=== PATIENT | female | born 1960 | race Hispanic/Latino ===

== ENCOUNTER → 2018-05-17 | Day surgery (SDC) | payer OTHER ==
[~2018-05-17] MED LIST: BUPIVACAINE 0.5%/EPI 30 ML SDV INJ ONE; DEXAMETHASONE SOD PHOS INJ 4 MG/ML VIAL ONE; FENTANYL CITRATE/PF 100MCG/2 ML INJ ONE; KETOROLAC TROMETHAMINE 30 MG/ML VIAL ONE; LIDOCAINE HCL 1% 30ML-PF VIAL ONE; LIDOCAINE HCL 2% LOCAL INJ 5 ML SDV VIAL INJ ONE; LISINOPRIL10 MG PO; MIDAZOLAM HCL 2 MG/2 ML VIAL ONE; MORPHINE SULFATE INJ 4 MG/ML INJ ONE; ONDANSETRON HCL INJ 2 MG/ML VIAL ONE; PRILOSEC OTC20 MG PO; PROPOFOL IV EMULSION 10 MG/ML 20 ML VIAL ONE; ROCURONIUM BROMIDE 10 MG/ML 5ML VIAL ONE; SEVOFLURANE INHAL SOLN 250 ML PEN BTL ONE
--- OUTSIDE RECORDS SUMMARY | 2018-05-17 08:21 | XMS REPORT | Summary of Care ---
Author Author [facility] Organization [facility] Address Unknown Phone Unavailable Encounter ILIANA Dean(SANDEEP) [phone] Date(s): 11/05/15 - 11/05/15 [facility] [address] [place] [address]- Discharge Disposition: Home Attending Physician: Toni Escobar MD Referring Physician: Toni Escobar MD Vital Signs No data available for this section Problem List Condition Effective Dates Status Health Status Informant GERD Active (gastroesophageal reflux disease)(Confirmed) H/O vaginal Active hysterectomy(Confirm ed) Incontinence(Confirm Active ed) Knee Resolved injury(Confirmed) Allergies, Adverse Reactions, Alerts Substance Reaction Severity Status NKDA Active Medications No data available for this section Results No data available for this section Immunizations Not Given Vaccine Date Status Refusal Reason influenza virus vaccine, inactivated 08/18/15 Not Given Patient Refuses influenza virus vaccine, inactivated 08/18/15 Not Given Patient Refuses Procedures Procedure Date Related Diagnosis Body Site BSO - Total abdominal hysterectomy and 08/03/15 bilateral salpingo-oophorectomy Arthroscopic knee operation Hernia repair Social History Social History Type Response Alcohol Current, Type Beer. Previous treatment: None. Alcohol use interferes with work or home: No. Drinks more than intended: No. Others hurt by drinking: No. Ready to change: No. Household alcohol concerns: No. Smoking Status Never smoker; Exposure to Tobacco Smoke None; Cigarette Smoking Last 365 Days No; Reg Smoking Cessation Counseling No Assessment and Plan No data available for this section
--- OUTSIDE RECORDS SUMMARY | 2018-05-17 08:21 | XMS REPORT | Summary of Care ---
Author Author [facility] Organization [facility] Address Unknown Phone Unavailable Encounter HQ Jermaine(SANDEEP) [id number] Date(s): 08/31/15 - 09/03/15 [facility] [address] [place] [address]- Discharge Disposition: Home Attending Physician: Nadira Ramirez MD Admitting Physician: Nadira Ramirez MD Vital Signs 1 2 3 Most recent to oldest [Reference Range]: 160.02 cm (08/31/15 11:30 AM) 162.56 cm (08/31/15 3:29 AM) Height 97.8 DegF (09/03/15 7:36 PM) 98.1 DegF (09/03/15 3:51 PM) 98.1 DegF (09/03/15 12:03 PM) Temperature Oral [96.4-99.1 DegF] 122/82 mmHg (09/03/15 7:36 PM) 108/70 mmHg (09/03/15 3:51 PM) 118/82 mmHg (09/03/15 12:03 PM) Blood Pressure [90-140/60-90 mmHg] 20 BRMIN (09/03/15 7:36 PM) 18 BRMIN (09/03/15 6:51 PM) 18 BRMIN (09/03/15 3:51 PM) Respiratory Rate [14-20 BRMIN] 88 bpm (09/03/15 7:36 PM) 90 bpm (09/03/15 3:51 PM) 81 bpm (09/03/15 12:03 PM) Peripheral Pulse Rate [60-100 bpm] 84.091 kg (08/31/15 11:30 AM) 84.091 kg (08/31/15 3:29 AM) Weight 32.84 m2 (08/31/15 11:30 AM) 31.82 m2 (08/31/15 3:29 AM) Body Mass Index Problem List Condition Effective Dates Status Health Status Informant GERD Active (gastroesophageal reflux disease)(Confirmed) H/O vaginal Active hysterectomy(Confirm ed) Incontinence(Confirm Active ed) Knee Resolved injury(Confirmed) Allergies, Adverse Reactions, Alerts Substance Reaction Severity Status NKDA Active Medications acetaminophen 650 mg, 2 tab, Route: PO, Drug form: TAB, Q4H, Dosing Weight 84.091, kg, PRN Cora n 1-3/Temp > 100.4 F, Start date: 08/31/15 19:07:00 CDT, Duration: 30 day, Stop date: 09/30/15 19:06:00 CDT Notes: Do not exceed 4 gm/day. (Same as: Tylenol) Start Date: 08/31/15 Stop Date: 09/03/15 Status: Discontinued acetaminophen (ANES) Route: IV, Drug form: INJ, ONCE, Stop date: 08/31/15 17:23:00 CDT Start Date: 08/31/15 Stop Date: 08/31/15 Status: Completed ampicillin + Sodium Chloride 0.9% IV 100 mL 2 gm, Route: IVPB, ABXQ6H, Dosing Weight 84.091, kg, Priority: STAT, Start date: 08/31/15 6:19:00 CDT, Duration: 30 day, Stop date: 09/30/15 0:19:00 CDT Notes: (Same as: Ran) MEDICATION WASTE Product Size: [address] Wasted: ___ mg Start Date: 08/31/15 Stop Date: 08/31/15 Status: Discontinued ceFAZolin (ANES) Route: IV, Drug form: INJ, ONCE, Stop date: 08/31/15 17:23:00 CDT Start Date: 08/31/15 Stop Date: 08/31/15 Status: Completed clindamycin 900 mg, 50 mL, Route: IVPB, Drug form: INJ, ABXQ8H, Dosing Weight 84.091, kg, Pr iority: STAT, Start date: 08/31/15 6:20:00 CDT, Duration: 30 day, Stop date: 04/05 22:20:00 CDT Start Date: 08/31/15 Stop Date: 08/31/15 Status: Discontinued D5NS 1,000 mL 1,000 mL, Rate: 125 ml/hr, Infuse over: 8 hr, Route: IV, Dosing Weight 84.091 kg , Total Volume: 1,000, Start date: 09/01/15 12:07:00 CDT, Duration: 30 day, Stop date: 10/01/15 12:06:00 CDT Start Date: 09/01/15 Stop Date: 09/02/15 Status: Discontinued dexamethasone 4 mg, Route: IVP, ONCE, Dosing Weight 84.091, kg, PRN Nausea & Vomiting, Start date: 08/31/15 19:06:00 CDT Start Date: 08/31/15 Stop Date: 08/31/15 Status: Discontinued dexamethasone (ANES) Route: IV, Drug form: INJ, ONCE, Stop date: 08/31/15 17:23:00 CDT Start Date: 08/31/15 Stop Date: 08/31/15 Status: Completed Dilaudid 1 mg, Route: IV, Q4H, Dosing Weight 84.091, kg, PRN Pain Score 7-10, Start date: 08/31/15 19:07:00 CDT, Duration: 30 day, Stop date: 09/30/15 19:06:00 CDT Start Date: 08/31/15 Stop Date: 08/31/15 Status: Deleted diphenhydrAMINE 12.5 mg, Route: IVP, Drug form: INJ, Q6H, Dosing Weight 84.091, kg, PRN Itching, Start date: 08/31/15 19:06:00 CDT, Duration: 30 day, Stop date: 09/30/15 19:05: 00 CDT Start Date: 08/31/15 Stop Date: 08/31/15 Status: Discontinued docusate 100 mg, 1 cap, Route: PO, Drug form: CAP, BID, Dosing Weight 84.091, kg, PRN Con stipation, Start date: 08/31/15 19:07:00 CDT, Duration: 30 day, Stop date: 09/29 19:06:00 CDT Notes: (Same as: Colace) (Do Not Crush) Start Date: 08/31/15 Stop Date: 09/03/15 Status: Discontinued fentaNYL 25 microgram, Route: IVP, Q5Min, Dosing Weight 84.091, kg, PRN Pain Score 4-6, S tart date: 08/31/15 19:06:00 CDT, Duration: 4 doses or times, Stop date: Limited # of times Start Date: 08/31/15 Stop Date: 08/31/15 Status: Discontinued fentaNYL 50 microgram, Route: IVP, Q5Min, Dosing Weight 84.091, kg, PRN Pain Score 7-10, Start date: 08/31/15 19:06:00 CDT, Duration: 2 doses or times, Stop date: Limite d # of times Start Date: 08/31/15 Stop Date: 08/31/15 Status: Discontinued fentaNYL (ANES) Route: IV, Drug form: INJ, ONCE, Stop date: 08/31/15 17:23:00 CDT Start Date: 08/31/15 Stop Date: 08/31/15 Status: Completed Flagyl 500 mg, 100 mL, Route: IVPB, Drug form: INJ, ABXQ8H, Dosing Weight 84.091, kg, S tart date: 08/31/15 19:00:00 CDT, Duration: 30 day, Stop date: 09/30/15 11:00:00 CDT Notes: (Same as: Flagyl) Avoid alcohol. Start Date: 08/31/15 Stop Date: 09/03/15 Status: Discontinued Flagyl 500 mg, Route: IVPB, ABXQ8H, Dosing Weight 84.091, kg, Start date: 08/31/15 20:0 0:00 CDT, Duration: 30 day, Stop date: 09/30/15 12:00:00 CDT Start Date: 08/31/15 Stop Date: 08/31/15 Status: Deleted flumazenil 0.2 mg, Route: IVP, PRN, Dosing Weight 84.091, kg, PRN Benzodiazepine Reversal, Initial dose, Start date: 08/31/15 19:06:00 CDT, Duration: 30 day, Stop date: 19:05:00 CDT Start Date: 08/31/15 Stop Date: 08/31/15 Status: Discontinued gentamicin 80 mg, 100 mL, Route: IVPB, Drug form: INJ, ABXQ8H, Dosing Weight 84.091, kg, Pr iority: STAT, Start date: 08/31/15 6:19:00 CDT, Duration: 30 day, Stop date: 04/05 22:19:00 CDT Notes: TIME CRITICAL MEDICATION(Same as Garamycin) Start Date: 08/31/15 Stop Date: 08/31/15 Status: Discontinued glycopyrrolate 0.2 mg, Route: IVP, Q5Min, Dosing Weight 84.091, kg, PRN Bradycardia, Start date : 08/31/15 19:06:00 CDT, Duration: 3 doses or times, Stop date: Limited # of priyanka es Start Date: 08/31/15 Stop Date: 08/31/15 Status: Discontinued glycopyrrolate (ANES) Route: IV, Drug form: INJ, ONCE, Stop date: 08/31/15 18:46:00 CDT Start Date: 08/31/15 Stop Date: 08/31/15 Status: Completed hydrALAZINE 10 mg, Route: IVP, Q20Min, Dosing Weight 84.091, kg, PRN Elevated BP, Start date : 08/31/15 19:06:00 CDT, Duration: 2 doses or times, Stop date: Limited # of priyanka es Start Date: 08/31/15 Stop Date: 08/31/15 Status: Discontinued hydromorphone 1 mg, 1 mL, Route: IV, Drug form: INJ, Q4H, Dosing Weight 84.091, kg, PRN Pain S core 7-10, Start date: 08/31/15 8:41:00 CDT, Duration: 30 day, Stop date: 8:40:00 CDT Start Date: 08/31/15 Stop Date: 09/02/15 Status: Discontinued hydromorphone 1 mg, 1 mL, Route: IVP, Drug form: INJ, Q4H, Dosing Weight 84.091, kg, PRN Pain Score 7-10, Start date: 08/31/15 19:07:00 CDT, Duration: 30 day, Stop date: 09/18 07/06 19:06:00 CDT Start Date: 08/31/15 Stop Date: 08/31/15 Status: Deleted hydromorphone 0.5 mg, Route: IVP, Q5Min, Dosing Weight 84.091, kg, PRN Pain Score 7-10, Start date: 08/31/15 19:06:00 CDT, Duration: 4 doses or times, Stop date: Limited # of times Start Date: 08/31/15 Stop Date: 08/31/15 Status: Discontinued hydromorphone (ANES) Route: IV, Drug form: INJ, ONCE, Stop date: 08/31/15 18:38:00 CDT Start Date: 08/31/15 Stop Date: 08/31/15 Status: Completed ibuprofen 600 mg oral tablet 600 mg=1 tab, PO, Q6H, PRN Pain Score 1-3, 0 Refill(s) Start Date: 09/03/15 Status: Ordered ketOROLAC 30 mg, Route: IV, Drug form: INJ, Q6H, Dosing Weight 84.091, kg, PRN Pain Score 6-10, Start date: 08/31/15 19:07:00 CDT, Duration: 4 day, Stop date: 09/04/15 19 :06:00 CDT Start Date: 08/31/15 Stop Date: 08/31/15 Status: Deleted ketOROLAC 30 mg, 1 mL, Route: IVP, Drug form: INJ, Q6H, Dosing Weight 84.091, kg, PRN Pain Score 6-10, Start date: 08/31/15 19:07:00 CDT, Duration: 4 day, Stop date: 08/19 11/03 19:06:00 CDT Notes: (Same as:Toradol) IV bolus must be given >15 seconds. Give IM administration slowly and deeply into the muscle.Not for use > 4 days MEDICATION WASTE Product Size: 30 mgProduct Wasted: ___ mg Start Date: 08/31/15 Stop Date: 09/02/15 Status: Discontinued ketOROLAC 30 mg, Route: IVP, ONCE, Dosing Weight 84.091, kg, Start date: 08/31/15 19:06:00 CDT, Duration: 1 doses or times, Stop date: 08/31/15 19:06:00 CDT Start Date: 08/31/15 Stop Date: 08/31/15 Status: Discontinued ketOROLAC 30 mg, 1 mL, Route: IVP, Drug form: INJ, Q6H, Dosing Weight 84.091, kg, PRN Pain Score 6-10, Start date: 09/02/15 19:12:00 CDT, Duration: 4 day, Stop date: 08/19 01/03 19:11:00 CDT Notes: (Same as:Toradol) IV bolus must be given >15 seconds. Give IM administration slowly and deeply into the muscle.Not for use > 4 days MEDICATION WASTE Product Size: 30 mgProduct Wasted: ___ mg Start Date: 09/02/15 Stop Date: 09/03/15 Status: Discontinued Lactated Ringers Injection IV (ANES) (ANES) Route: IV, Total Volume: 1,000, Start date: 08/31/15 16:16:00 CDT, Stop date: 17:16:00 CDT Start Date: 08/31/15 Stop Date: 08/31/15 Status: Completed Lactated Ringers IV 1,000 mL 1,000 mL, Rate: 75 ml/hr, Infuse over: 13.3 hr, Route: IV, Dosing Weight 84.091 kg, Total Volume: 1,000, Start date: 08/31/15 19:07:00 CDT, Duration: 30 day, St op date: 09/30/15 19:06:00 CDT Start Date: 08/31/15 Stop Date: 09/01/15 Status: Voided With Results lidocaine (ANES) Route: IV, Drug form: INJ, ONCE, Stop date: 08/31/15 17:23:00 CDT Start Date: 08/31/15 Stop Date: 08/31/15 Status: Completed LR IV 1,000 mL 1,000 mL, Rate: 40 ml/hr, Infuse over: 25 hr, Route: IV, Dosing Weight 84.091 kg , Total Volume: 1,000, Start date: 08/31/15 16:02:00 CDT, Duration: 30 day, Stop date: 09/30/15 16:01:00 CDT Start Date: 08/31/15 Stop Date: 08/31/15 Status: Discontinued meperidine 12.5 mg, Route: IVP, Q30Min, Dosing Weight 84.091, kg, PRN Other -See Comment, F or shivering, Start date: 08/31/15 19:06:00 CDT, Duration: 2 doses or times, Sto p date: Limited # of times Start Date: 08/31/15 Stop Date: 08/31/15 Status: Discontinued metoprolol 1 mg, Route: IVP, Q5Min, Dosing Weight 84.091, kg, PRN Other -See Comment, Start date: 08/31/15 19:06:00 CDT, Duration: 5 doses or times, Stop date: Limited # of times Start Date: 08/31/15 Stop Date: 08/31/15 Status: Discontinued midazolam (ANES) Route: IV, Drug form: SOLN, ONCE, Stop date: 08/31/15 17:18:00 CDT Start Date: 08/31/15 Stop Date: 08/31/15 Status: Completed morphine Sulfate 2 mg, 1 mL, Route: IVP, Drug form: INJ, Q4H, Dosing Weight 84.091, kg, PRN Pain Score 7-10, Start date: 08/31/15 7:11:00 CDT, Duration: 30 day, Stop date: 09/29 7:10:00 CDT Notes: (Same as:MORPhine Sulfate) Start Date: 08/31/15 Stop Date: 08/31/15 Status: Voided With Results morphine Sulfate 4 mg, 2 mL, Route: IVP, Drug form: INJ, Q3H, Dosing Weight 84.091, kg, PRN Pain Score 4-6, Start date: 08/31/15 19:07:00 CDT, Stop date: 09/30/15 19:06:00 CDT Notes: (Same as:MORPhine Sulfate) Start Date: 08/31/15 Stop Date: 09/02/15 Status: Discontinued morphine Sulfate 2 mg, 1 mL, Route: IVP, Drug form: INJ, Q3H, Dosing Weight 84.091, kg, PRN Pain Score 1-3, Start date: 08/31/15 19:07:00 CDT, Duration: 30 day, Stop date: 09/29 19:06:00 CDT Notes: (Same as:MORPhine Sulfate) Start Date: 08/31/15 Stop Date: 09/02/15 Status: Discontinued morphine Sulfate 2 mg, Route: IVP, Drug form: INJ, ONCE, Dosing Weight 84.091, kg, Priority: STAT , Start date: 08/31/15 6:29:00 CDT, Stop date: 08/31/15 6:29:00 CDT Start Date: 08/31/15 Stop Date: 08/31/15 Status: Completed morphine Sulfate 2 mg, Route: IVP, Q5Min, Dosing Weight 84.091, kg, PRN Pain Score 4-6, Start haleigh e: 08/31/15 19:06:00 CDT, Duration: 5 doses or times, Stop date: Limited # of ti mes Start Date: 08/31/15 Stop Date: 08/31/15 Status: Discontinued morphine Sulfate 4 mg, Route: IVP, Q5Min, Dosing Weight 84.091, kg, PRN Pain Score 7-10, Start da te: 08/31/15 19:06:00 CDT, Duration: 3 doses or times, Stop date: Limited # of t imes Start Date: 08/31/15 Stop Date: 08/31/15 Status: Discontinued morphine Sulfate 2 mg, Route: IVP, Drug form: INJ, ONCE, Dosing Weight 84.091, kg, Priority: STAT , Start date: 08/31/15 3:50:00 CDT, Stop date: 08/31/15 3:50:00 CDT Start Date: 08/31/15 Stop Date: 08/31/15 Status: Completed Motrin 600 mg, 1 tab, Route: PO, Drug form: TAB, Q6H, Dosing Weight 84.091, kg, PRN Cora n Score 1-3, Start date: 09/02/15 19:13:00 CDT, Duration: 30 day, Stop date: 19:12:00 CDT Notes: (Same as: Motrin)"Do Not Crush" Take with food. Start Date: 09/02/15 Stop Date: 09/03/15 Status: Discontinued naloxone 0.04 mg, Route: IVP, Q2MIN, Dosing Weight 84.091, kg, PRN Narcotic Reversal, Sta rt date: 08/31/15 19:06:00 CDT, Duration: 8 doses or times, Stop date: Limited # of times Start Date: 08/31/15 Stop Date: 08/31/15 Status: Discontinued neostigmine (ANES) Route: IV, Drug form: INJ, ONCE, Stop date: 08/31/15 18:46:00 CDT Start Date: 08/31/15 Stop Date: 08/31/15 Status: Completed [place] 5/325 oral tablet 2 tab, PO, Q6H, PRN Pain Score 4-6, 0 Refill(s) Start Date: 09/03/15 Status: Ordered [place] 5/325 oral tablet 1 tab, PO, Q6H, PRN Pain Score 1-3, 0 Refill(s) Start Date: 09/03/15 Status: Ordered [place] 5/325 oral tablet 2 tab, Route: PO, Drug Form: TAB, Dosing Weight 84.091, kg, Q6H, PRN Pain Score 4-6, Start date: 09/02/15 19:14:00 CDT, Duration: 30 day, Stop date: 10/02/15 19 :13:00 CDT Notes: (Same as: [place] 325/5) Do not exceed 4gm/day of acetaminophen. Start Date: 09/02/15 Stop Date: 09/03/15 Status: Discontinued [place] 5/325 oral tablet 1 tab, Route: PO, Drug Form: TAB, Dosing Weight 84.091, kg, Q6H, PRN Pain Score 1-3, Start date: 09/02/15 19:14:00 CDT, Duration: 30 day, Stop date: 10/02/15 19 :13:00 CDT Notes: (Same as: [place] 325/5) Do not exceed 4gm/day of acetaminophen. Start Date: 09/02/15 Stop Date: 09/03/15 Status: Discontinued NS (Bolus) IV 1,000 mL, 1,000 ml/hr, Infuse Over: 1 hr, Route: IV, ONCE, Priority: STAT, Dosin g Weight 84.091 kg, Start date: 08/31/15 3:49:00 CDT, Duration: 1 doses or times , Stop date: 08/31/15 3:49:00 CDT Start Date: 08/31/15 Stop Date: 08/31/15 Status: Completed NS 1,000 mL 1,000 mL, Rate: 150 ml/hr, Infuse over: 6.7 hr, Route: IV, Dosing Weight 84.091 kg, Total Volume: 1,000, Start date: 08/31/15 7:11:00 CDT, Duration: 30 day, Sto p date: 09/30/15 7:10:00 CDT Start Date: 08/31/15 Stop Date: 08/31/15 Status: Discontinued ondansetron 4 mg, 2 mL, Route: IVP, Drug form: INJ, Q6H, Dosing Weight 84.091, kg, PRN Nause a & Vomiting, Start date: 08/31/15 19:07:00 CDT, Duration: 30 day, Stop date: 09/30/15 19:06:00 CDT Notes: (Same as: Leena) MEDICATION WASTE Product Size: 4 mgProduct Was bethel: ___ mg Start Date: 08/31/15 Stop Date: 09/03/15 Status: Discontinued ondansetron 4 mg, Route: IVP, ONCE, Dosing Weight 84.091, kg, PRN Nausea & Vomiting, Start date: 08/31/15 19:06:00 CDT Start Date: 08/31/15 Stop Date: 08/31/15 Status: Discontinued ondansetron (ANES) Route: IV, Drug form: INJ, ONCE, Stop date: 08/31/15 17:23:00 CDT Start Date: 08/31/15 Stop Date: 08/31/15 Status: Completed oxyCODONE 5 mg, Route: PO, Drug form: TAB, Q4H, Dosing Weight 84.091, kg, PRN Pain Score 4 -6, Start date: 08/31/15 19:06:00 CDT, Duration: 30 day, Stop date: 09/30/15 19: 05:00 CDT Start Date: 08/31/15 Stop Date: 08/31/15 Status: Discontinued oxyCODONE 10 mg, Route: PO, Drug form: TAB, Q4H, Dosing Weight 84.091, kg, PRN Pain Score 7-10, Start date: 08/31/15 19:06:00 CDT, Duration: 30 day, Stop date: 09/30/15 1 9:05:00 CDT Start Date: 08/31/15 Stop Date: 08/31/15 Status: Discontinued pantoprazole 40 mg, 1 tab, Route: PO, Drug form: ECTAB, Before Dinner, Dosing Weight 84.091, kg, Start date: 09/03/15 16:30:00 CDT, Duration: 30 day, Stop date: 10/02/15 16: 30:00 CDT Notes: Tablet should not be chewed or crushed.(Same as: Protonix) Start Date: 09/03/15 Stop Date: 09/03/15 Status: Discontinued phenylephrine (ANES) Route: IV, Drug form: INJ, ONCE, Stop date: 08/31/15 17:48:00 CDT Start Date: 08/31/15 Stop Date: 08/31/15 Status: Completed Prilosec 20 mg, Route: PO, Drug form: DRC, Daily, Dosing Weight 84.091, kg, Start date: 0 09/04/15 9:00:00 CDT, Duration: 30 day, Stop date: 10/03/15 9:00:00 CDT Start Date: 09/04/15 Stop Date: 09/03/15 Status: Deleted Prilosec 20 mg oral delayed release capsule 20 mg, PO, Daily, 0 Refill(s) Start Date: 09/03/15 Status: Ordered promethazine 6.25 mg, Route: IVPB, ONCE, Dosing Weight 84.091, kg, PRN Nausea & Vomiting, Start date: 08/31/15 19:06:00 CDT Start Date: 08/31/15 Stop Date: 08/31/15 Status: Discontinued propofol (ANES) Route: IV, Drug form: INJ, ONCE, Stop date: 08/31/15 17:23:00 CDT Start Date: 08/31/15 Stop Date: 08/31/15 Status: Completed rocuronium (ANES) Route: IV, Drug form: INJ, ONCE, Stop date: 08/31/15 17:23:00 CDT Start Date: 08/31/15 Stop Date: 08/31/15 Status: Completed simethicone 160 mg, 2 tab, Route: PO, Drug form: CHEWTAB, Q2H, Dosing Weight 84.091, kg, PRN Gas, Start date: 08/31/15 19:07:00 CDT, Duration: 30 day, Stop date: 09/30/15 1 9:06:00 CDT Notes: (Same as: Inez) Start Date: 08/31/15 Stop Date: 09/03/15 Status: Discontinued Zofran 4 mg, Route: IVP, Drug form: INJ, ONCE, Dosing Weight 84.091, kg, Priority: STAT , Start date: 08/31/15 3:50:00 CDT, Stop date: 08/31/15 3:50:00 CDT Start Date: 08/31/15 Stop Date: 08/31/15 Status: Completed Zosyn 3.375 gm, Route: IVPB, Drug form: PDR/INJ, ABXQ6H, Dosing Weight 84.091, kg, Sta rt date: 08/31/15 20:00:00 CDT, Duration: 30 day, Stop date: 09/30/15 14:00:00 C DT Start Date: 08/31/15 Stop Date: 08/31/15 Status: Deleted Zosyn 3.375 gm, Route: IVPB, Drug form: PDR/INJ, ONCE, Dosing Weight 84.091, kg, Prior ity: STAT, Start date: 08/31/15 6:01:00 CDT, Stop date: 08/31/15 6:01:00 CDT Start Date: 08/31/15 Stop Date: 08/31/15 Status: Discontinued Zosyn + Sodium Chloride 0.9% IV 100 mL 3.375 gm, Route: IVPB, ABXQ8H, Dosing Weight 84.091, kg, Start date: 08/31/15 19 :00:00 CDT, Duration: 30 day, Stop date: 09/30/15 11:00:00 CDT Notes: (Same as: Zosyn)Dosing based on Piperacillin component MEDICATION WA KIAH Product Size: 3375 mgProduct Wasted: ___ mg Start Date: 08/31/15 Stop Date: 08/31/15 Status: Discontinued Zosyn + Sodium Chloride 0.9% IV 100 mL 3.375 gm, Route: IVPB, ABXQ8H, Dosing Weight 84.091, kg, Start date: 08/31/15 20 :00:00 CDT, Duration: 30 day, Stop date: 09/30/15 12:00:00 CDT Notes: (Same as: Zosyn)Dosing based on Piperacillin component MEDICATION [place] KIAH Product Size: 3375 mgProduct Wasted: ___ mg Start Date: 08/31/15 Stop Date: 09/03/15 Status: Discontinued Results ELECTROLYTES 1 2 3 Most recent to oldest [Reference Range]: 139 mEq/L (09/03/15 4:01 AM) 136 mEq/L (09/01/15 6:05 AM) 134 mEq/L *LOW* (08/31/15 4:23 AM) Sodium Lvl [135-145 mEq/L] 3.7 mEq/L (09/03/15 4:01 AM) 4.4 mEq/L (09/01/15 6:05 AM) 4.1 mEq/L (08/31/15 4:23 AM) Potassium Lvl [3.5-5.1 mEq/L] 110 mEq/L *HI* (09/03/15 4:01 AM) 103 mEq/L (09/01/15 6:05 AM) 101 mEq/L (08/31/15 4:23 AM) Chloride Lvl [95-109 mEq/L] 22 mEq/L *LOW* (09/03/15 4:01 AM) 23 mEq/L *LOW* (09/01/15 6:05 AM) 27 mEq/L (08/31/15 4:23 AM) CO2 [24-32 mEq/L] 10.7 mEq/L (09/03/15 4:01 AM) 14.4 mEq/L (09/01/15 6:05 AM) 10.1 mEq/L (08/31/15 4:23 AM) AGAP [10.0-20.0 mEq/L] CHEM PANEL 1 2 3 Most recent to oldest [Reference Range]: 0.44 mg/dL *LOW* (09/03/15 4:01 AM) 0.67 mg/dL (09/01/15 6:05 AM) 0.71 mg/dL (08/31/15 10:43 PM) Creatinine Lvl [0.50-1.40 mg/dL] 113 mL/min/1.73m2 1 *NA* (09/03/15 4:01 AM) 99 mL/min/1.73m2 2 *NA* (09/01/15 6:05 AM) 96 mL/min/1.73m2 3 *NA* (08/31/15 10:43 PM) eGFR 5 mg/dL *LOW* (09/03/15 4:01 AM) 10 mg/dL (09/01/15 6:05 AM) 10 mg/dL (08/31/15 4:23 AM) BUN [7-22 mg/dL] 11 (09/03/15 4:01 AM) 15 (08/31/15 4:23 AM) B/C Ratio [6-25] 111 mg/dL *HI* (09/03/15 4:01 AM) 147 mg/dL *HI* (09/01/15 6:05 AM) 132 mg/dL *HI* (08/31/15 4:23 AM) Glucose Lvl [70-99 mg/dL] 5.4 g/dL *LOW* (09/03/15 4:01 AM) 7.5 g/dL (08/31/15 4:23 AM) Total Protein [6.4-8.4 g/dL] 2.5 g/dL *LOW* (09/03/15 4:01 AM) 3.7 g/dL (08/31/15 4:23 AM) Albumin Lvl [3.5-5.0 g/dL] 2.9 g/dL (09/03/15 4:01 AM) 3.8 g/dL (08/31/15 4:23 AM) Globulin [2.0-4.0 g/dL] 0.9 (09/03/15 4:01 AM) 1.0 (08/31/15 4:23 AM) A/G Ratio [0.7-1.6] 7.3 mg/dL *LOW* (09/03/15 4:01 AM) 7.7 mg/dL *LOW* (09/01/15 6:05 AM) 8.7 mg/dL (08/31/15 4:23 AM) Calcium Lvl [8.5-10.5 mg/dL] 23 unit/L (09/03/15 4:01 AM) 19 unit/L (08/31/15 4:23 AM) ALT [0-65 unit/L] 20 unit/L (09/03/15 4:01 AM) 14 unit/L (08/31/15 4:23 AM) AST [0-37 unit/L] 80 unit/L (09/03/15 4:01 AM) 87 unit/L (08/31/15 4:23 AM) Alk Phos [39-136 unit/L] 0.6 mg/dL (09/03/15 4:01 AM) 1.0 mg/dL (08/31/15 4:23 AM) Bili Total [0.2-1.3 mg/dL] 83 unit/L (08/31/15 4:23 AM) Lipase Lvl [73-393 unit/L] 2.0 mMol/L (08/31/15 6:30 AM) Lactic Acid Lvl [0.5-2.2 mMol/L] 1Result Comment: The eGFR is calculated using the CKD-EPI formula. In most young, healthy individuals the eGFR will be >90 mL/min/1.73m2. The eGFR declines with age. An eGFR of 60-89 may be normal in some populations, particularly the elderly, for whom the CKD-EPI formula has not been extensively validated. Use of the eGFR is not recommended in the following populations: Individuals with unstable creatinine concentrations, including patients and those with serious co-morbid conditions. Patients with extremes in muscle mass or diet. The data above are obtained from the [employer] ( [employer]) which additionally recommends that when the eGFR is used in patients with extremes of body mass index for purposes of drug dosing, the eGFR should be mul tiplied by the estimated BMI. 2Result Comment: The eGFR is calculated using the CKD-EPI formula. In most young, healthy individuals the eGFR will be >90 mL/min/1.73m2. The eGFR declines with age. An eGFR of 60-89 may be normal in some populations, particularly the elderly, for whom the CKD-EPI formula has not been extensively validated. Use of the eGFR is not recommended in the following populations: Individuals with unstable creatinine concentrations, including patients and those with serious co-morbid conditions. Patients with extremes in muscle mass or diet. The data above are obtained from the [employer] ( [employer]) which additionally recommends that when the eGFR is used in patients with extremes of body mass index for purposes of drug dosing, the eGFR should be mul tiplied by the estimated BMI. 3Result Comment: The eGFR is calculated using the CKD-EPI formula. In most young, healthy individuals the eGFR will be >90 mL/min/1.73m2. The eGFR declines with age. An eGFR of 60-89 may be normal in some populations, particularly the elderly, for whom the CKD-EPI formula has not been extensively validated. Use of the eGFR is not recommended in the following populations: Individuals with unstable creatinine concentrations, including patients and those with serious co-morbid conditions. Patients with extremes in muscle mass or diet. The data above are obtained from the [employer] Education Program ( [employer]) which additionally recommends that when the eGFR is used in patients with extremes of body mass index for purposes of drug dosing, the eGFR should be mul tiplied by the estimated BMI. URINE AND STOOL 1 2 3 Most recent to oldest [Reference Range]: Slight *ABN* (08/31/15 5:06 AM) UA Turbidity [Clear] Yellow *NA* (08/31/15 5:06 AM) UA Color [Yellow] 7.0 (08/31/15 5:06 AM) UA pH [5.0-8.0] 1.018 (08/31/15 5:06 AM) UA Spec Grav [<=1.030] Negative mg/dL *NA* (08/31/15 5:06 AM) UA Glucose [Negative mg/dL] Large *ABN* (08/31/15 5:06 AM) UA Blood [Negative] Negative mg/dL *NA* (08/31/15 5:06 AM) UA Ketones [Negative mg/dL] Negative mg/dL (08/31/15 5:06 AM) UA Protein [Negative mg/dL] <=1.0 mg/dL *NA* (08/31/15 5:06 AM) UA Urobilinogen [0.1-1.0 mg/dL] Negative *NA* (08/31/15 5:06 AM) UA Bili [Negative] Trace *ABN* (08/31/15 5:06 AM) UA Leuk Est [Negative] Negative (08/31/15 5:06 AM) UA Nitrite [Negative] 11 /HPF *HI* (08/31/15 5:06 AM) UA WBC [0-5 /HPF] 7 /HPF *HI* (08/31/15 5:06 AM) UA RBC [0-2 /HPF] Occasional /HPF *NA* (08/31/15 5:06 AM) UA Bacteria [None Seen /HPF] Occasional /LPF *NA* (08/31/15 5:06 AM) UA Sq Epi [Few /LPF] Occasional /HPF *NA* (08/31/15 5:06 AM) UA Amorph [place] [None Seen /HPF] IMMUNOLOGY 1 2 3 Most recent to oldest [Reference Range]: Negative *NA* (08/31/15 10:09 AM) Seibert-Hep C Ab [Negative] HEMATOLOGY 1 2 3 Most recent to oldest [Reference Range]: 5.6 K/CMM (09/03/15 4:01 AM) 13.3 K/CMM *HI* (09/01/15 6:05 AM) 11.9 K/CMM *HI* (08/31/15 4:23 AM) WBC [3.7-10.4 K/CMM] 2.70 M/CMM *LOW* (09/03/15 4:01 AM) 3.30 M/CMM *LOW* (09/01/15 6:05 AM) 3.47 M/CMM *LOW* (08/31/15 4:23 AM) RBC [4.20-5.40 M/CMM] 7.5 g/dL *LOW* (09/03/15 4:01 AM) 9.2 g/dL *LOW* (09/01/15 6:05 AM) 9.7 g/dL *LOW* (08/31/15 4:23 AM) Hgb [12.0-16.0 g/dL] 22.8 % *LOW* (09/03/15 4:01 AM) 28.0 % *LOW* (09/01/15 6:05 AM) 29.6 % *LOW* (08/31/15 4:23 AM) Hct [36.0-48.0 %] 84.3 fL (09/03/15 4:01 AM) 84.7 fL (09/01/15 6:05 AM) 85.2 fL (08/31/15 4:23 AM) MCV [80.0-98.0 fL] 27.8 pg (09/03/15 4:01 AM) 28.0 pg (09/01/15 6:05 AM) 27.9 pg (08/31/15 4:23 AM) MCH [27.0-31.0 pg] 33.0 g/dL (09/03/15 4:01 AM) 33.0 g/dL (09/01/15 6:05 AM) 32.7 g/dL (08/31/15 4:23 AM) MCHC [32.0-36.0 g/dL] 14.5 % (09/03/15 4:01 AM) 14.1 % (09/01/15 6:05 AM) 14.2 % (08/31/15 4:23 AM) RDW [11.5-14.5 %] 396 K/CMM (09/03/15 4:01 AM) 410 K/CMM (09/01/15 6:05 AM) 431 K/CMM (08/31/15 10:43 PM) Platelet [133-450 K/CMM] 6.7 fL *LOW* (09/03/15 4:01 AM) 6.6 fL *LOW* (09/01/15 6:05 AM) 6.3 fL *LOW* (08/31/15 4:23 AM) MPV [7.4-10.4 fL] 74.4 % (09/03/15 4:01 AM) 88.6 % *HI* (09/01/15 6:05 AM) 86.6 % *HI* (08/31/15 4:23 AM) Segs [45.0-75.0 %] 15.5 % *LOW* (09/03/15 4:01 AM) 5.1 % *LOW* (09/01/15 6:05 AM) 7.3 % *LOW* (08/31/15 4:23 AM) Lymphocytes [20.0-40.0 %] 6.2 % (09/03/15 4:01 AM) 6.0 % (09/01/15 6:05 AM) 5.1 % (08/31/15 4:23 AM) Monocytes [2.0-12.0 %] 3.4 % (09/03/15 4:01 AM) 0.6 % (08/31/15 4:23 AM) Eosinophils [0.0-4.0 %] 0.5 % (09/03/15 4:01 AM) 0.3 % (09/01/15 6:05 AM) 0.4 % (08/31/15 4:23 AM) Basophils [0.0-1.0 %] 4.2 K/CMM (09/03/15 4:01 AM) 11.8 K/CMM *HI* (09/01/15 6:05 AM) 10.3 K/CMM *HI* (08/31/15 4:23 AM) Segs-Bands # [1.5-8.1 K/CMM] 0.9 K/CMM *LOW* (09/03/15 4:01 AM) 0.7 K/CMM *LOW* (09/01/15 6:05 AM) 0.9 K/CMM *LOW* (08/31/15 4:23 AM) Lymphocytes # [1.0-5.5 K/CMM] 0.3 K/CMM (09/03/15 4:01 AM) 0.8 K/CMM (09/01/15 6:05 AM) 0.6 K/CMM (08/31/15 4:23 AM) Monocytes # [0.0-0.8 K/CMM] 0.2 K/CMM (09/03/15 4:01 AM) 0.1 K/CMM (08/31/15 4:23 AM) Eosinophils # [0.0-0.5 K/CMM] 35.9 seconds *HI* (08/31/15 10:43 PM) PTT [22.9-35.8 seconds] Immunizations Vaccine Date Refusal Reason influenza virus vaccine, inactivated 08/18/15 Patient Refuses influenza virus vaccine, inactivated 08/18/15 Patient Refuses Procedures Procedure Date Related Diagnosis [...] Smoking Cessation Counseling No Assessment and Plan Extracted from: Title: Clinical Document Author: Toni Zarate MD Date: 09/03/15 Still with increased drain output. Will monitor. Once decreased, will remove prior to dc or in office.
--- OUTSIDE RECORDS SUMMARY | 2018-05-17 08:21 | XMS REPORT | Summary of Care ---
Author Author [facility] Organization [facility] Address Unknown Phone Unavailable Encounter ILIANA Dean(SANDEEP) [id number] Date(s): 08/17/15 - 08/18/15 [facility] [address] [place] [address]- Discharge Disposition: Home Attending Physician: Toni Escobar MD Referring Physician: Toni Escobar MD Vital Signs 1 2 3 Most recent to oldest [Reference Range]: 165.1 cm (08/12/15 2:48 PM) Height 98.4 DegF (08/18/15 7:30 AM) 98.5 DegF (08/18/15 3:57 AM) 98.0 DegF (08/17/15 8:40 PM) Temperature Oral [96.4-99.1 DegF] 99/64 mmHg (08/18/15 7:30 AM) 96/59 mmHg (08/18/15 3:57 AM) 103/70 mmHg (08/17/15 8:40 PM) Blood Pressure [90-140/60-90 mmHg] 14 BRMIN (08/18/15 8:45 AM) 16 BRMIN (08/18/15 7:30 AM) 14 BRMIN (08/18/15 3:57 AM) Respiratory Rate [14-20 BRMIN] 85 bpm (08/18/15 7:30 AM) 93 bpm (08/18/15 3:57 AM) 91 bpm (08/17/15 8:40 PM) Peripheral Pulse Rate [60-100 bpm] 85.455 kg (08/12/15 2:48 PM) Weight 31.35 m2 (08/12/15 2:48 PM) Body Mass Index Problem List Condition Effective Dates Status Health Status Informant GERD Active (gastroesophageal reflux disease)(Confirmed) H/O vaginal Active hysterectomy(Confirm ed) Incontinence(Confirm Active ed) Knee Resolved injury(Confirmed) Allergies, Adverse Reactions, Alerts Substance Reaction Severity Status NKDA Active Medications acetaminophen (ANES) (ANES) Route: IV, Drug form: INJ, Start date: 08/17/15 12:44:00, Stop date: 08/17/15 13 :44:00 Start Date: 08/17/15 Stop Date: 08/17/15 Status: Completed acetaminophen-hydrocodone 325 mg-5 mg oral tablet 1 tab, Route: PO, Drug Form: TAB, Dosing Weight 85.455, kg, Q4H, PRN Pain Score 1-3, Start date: 08/17/15 15:22:00, Duration: 30 day, Stop date: 09/16/15 15:21: 00 Notes: (Same as: [place] 325/5) Do not exceed 4gm/day of acetaminophen. Start Date: 08/17/15 Stop Date: 08/18/15 Status: Discontinued albuterol 0.083% inhalation solution 2.49 mg, Route: NEB, Q20Min, Dosing Weight 85.455, kg, PRN Wheezing, Priority: S TAT, Start date: 08/17/15 15:56:00, Duration: 30 day, Stop date: 09/16/15 15:55: 00 Start Date: 08/17/15 Stop Date: 08/17/15 Status: Discontinued Ancef 2 gm, Route: IVPB, ONCE, Dosing Weight 85.455, kg, Start date: 08/17/15 11:00:00 , Duration: 1 doses or times, Stop date: 08/17/15 11:00:00 Start Date: 08/17/15 Stop Date: 08/17/15 Status: Completed ceFAZolin (ANES) Route: IV, Drug form: INJ, ONCE, Stop date: 08/17/15 13:01:00 Start Date: 08/17/15 Stop Date: 08/17/15 Status: Deleted ceFAZolin (ANES) (ANES) Route: IV, Drug form: INJ, Start date: 08/17/15 12:28:00, Stop date: 08/17/15 13 :28:00 Start Date: 08/17/15 Stop Date: 08/17/15 Status: Completed ceFAZolin (SCIP) 2 gm, 100 mL, Route: IVPB, Drug form: INJ, ABXQ8H, Dosing Weight 85.455, kg, Sta rt date: 08/17/15 20:00:00, Duration: 2 doses or times, Stop date: 08/18/15 4:00 :00 Notes: Same as: Ancef Start Date: 08/17/15 Stop Date: 08/18/15 Status: Completed ceFAZolin (SCIP) 2 gm, Route: IVPB, Drug form: INJ, Q8H, Dosing Weight 85.455, kg, Start date: 16:00:00, Duration: 2 doses or times, Stop date: 08/18/15 0:00:00 Start Date: 08/17/15 Stop Date: 08/17/15 Status: Discontinued dexamethasone (ANES) Route: IV, Drug form: INJ, ONCE, Stop date: 08/17/15 13:31:00 Start Date: 08/17/15 Stop Date: 08/17/15 Status: Completed diphenhydrAMINE 12.5 mg, Route: IVP, Drug form: INJ, Q6H, Dosing Weight 85.455, kg, PRN Itching, Start date: 08/17/15 15:56:00, Duration: 30 day, Stop date: 09/16/15 15:55:00 Start Date: 08/17/15 Stop Date: 08/17/15 Status: Discontinued diphenhydrAMINE 25 mg, 1 tab, Route: PO, Drug form: TAB, Bedtime, Dosing Weight 85.455, kg, PRN Insomnia, Start date: 08/17/15 15:22:00, Duration: 30 day, Stop date: 09/16/15 1 5:21:00 Start Date: 08/17/15 Stop Date: 08/18/15 Status: Discontinued docusate 100 mg, 1 cap, Route: PO, Drug form: CAP, BID, Dosing Weight 85.455, kg, PRN Con stipation, Start date: 08/17/15 15:22:00, Duration: 30 day, Stop date: 09/16/15 15:21:00 Notes: (Same as: Colace) (Do Not Crush) Start Date: 08/17/15 Stop Date: 08/18/15 Status: Discontinued fentaNYL 25 microgram, Route: IVP, Q5Min, Dosing Weight 85.455, kg, PRN Pain Score 4-6, S tart date: 08/17/15 15:56:00, Duration: 4 doses or times, Stop date: Limited # o f times Start Date: 08/17/15 Stop Date: 08/17/15 Status: Discontinued fentaNYL (ANES) Route: IV, Drug form: INJ, ONCE, Stop date: 08/17/15 15:21:00 Start Date: 08/17/15 Stop Date: 08/17/15 Status: Completed fentaNYL (ANES) Route: IV, Drug form: INJ, ONCE, Stop date: 08/17/15 13:06:00 Start Date: 08/17/15 Stop Date: 08/17/15 Status: Completed flumazenil 0.2 mg, Route: IVP, PRN, Dosing Weight 85.455, kg, PRN Benzodiazepine Reversal, Initial dose, Start date: 08/17/15 15:56:00, Duration: 30 day, Stop date: 15:55:00 Start Date: 08/17/15 Stop Date: 08/17/15 Status: Discontinued Fluzone Preservative-Free Quadrivalent 0.5 mL, Route: IM, Drug Form: SUSP, Daily, Start date: 08/18/15 12:30:00, Stop d ate: 09/17/15 9:00:00 Notes: (Same as: Fluzone Quadrivalent)For 3 years of age and older (0.5 mL IM)Sh tonya well before use Start Date: 08/18/15 Stop Date: 08/18/15 Status: Discontinued hydromorphone 0.5 mg, Route: IVP, Q5Min, Dosing Weight 85.455, kg, PRN Pain Score 7-10, Start date: 08/17/15 15:56:00, Duration: 4 doses or times, Stop date: Limited # of priyanka es Start Date: 08/17/15 Stop Date: 08/17/15 Status: Discontinued influenza virus vaccine, inactivated 0.5 mL, Route: IM, Drug Form: SUSP, Daily, Start date: 08/18/15 9:00:00, Stop da te: 08/18/15 12:00:00 Notes: (Same as: Fluzone Quadrivalent)For 3 years of age and older (0.5 mL IM)Sh tonya well before use Start Date: 08/18/15 Stop Date: 08/18/15 Status: Completed ketOROLAC 30 mg, 1 mL, Route: IM, Drug form: INJ, Q6H, Dosing Weight 85.455, kg, Start haleigh e: 08/17/15 21:00:00, Duration: 4 day, Stop date: 08/21/15 18:00:00 Notes: (Same as:Toradol) IV bolus must be given >15 seconds. Give IM administration slowly and deeply into the muscle.Not for use > 4 days MEDICATION WASTE Product Size: 30 mgProduct Wasted: ___ mg Start Date: 08/17/15 Stop Date: 08/18/15 Status: Discontinued ketOROLAC (ANES) IV, ONCE Start Date: 08/17/15 Stop Date: 08/17/15 Status: Completed Lactated Ringers Injection IV (ANES) (ANES) Route: IV, Total Volume: 1,000, Start date: 08/17/15 12:15:00, Stop date: 13:15:00 Start Date: 08/17/15 Stop Date: 08/17/15 Status: Completed Lactated Ringers Injection IV 1,000 mL 1,000 mL, Rate: 125 ml/hr, Infuse over: 8 hr, Route: IV, Dosing Weight 85.455 kg , Total Volume: 1,000, Start date: 08/17/15 15:22:00, Duration: 30 day, Stop haleigh e: 09/16/15 15:21:00 Start Date: 08/17/15 Stop Date: 08/18/15 Status: Discontinued Lactated Ringers Injection IV 1000 mL 1,000 mL, Rate: 25 ml/hr, Infuse over: 40 hr, Route: IV, Dosing Weight 85.455 kg , Total Volume: 1,000, Start date: 08/17/15 11:40:00, Duration: 30 day, Stop haleigh e: 09/16/15 11:39:00 Start Date: 08/17/15 Stop Date: 08/17/15 Status: Discontinued lidocaine (ANES) Route: IV, Drug form: INJ, ONCE, Stop date: 08/17/15 13:06:00 Start Date: 08/17/15 Stop Date: 08/17/15 Status: Completed LR IV 500 mL 500 mL, Rate: 500 ml/hr, Infuse over: 1 hr, Route: IV, Dosing Weight 85.455 kg, Total Volume: 500, Start date: 08/17/15 18:47:00, Duration: 1 doses or times, St op date: 08/17/15 19:46:00 Start Date: 08/17/15 Stop Date: 08/17/15 Status: Completed meperidine 12.5 mg, Route: IVP, Q30Min, Dosing Weight 85.455, kg, PRN Other -See Comment, F or shivering, Start date: 08/17/15 15:56:00, Duration: 2 doses or times, Stop da te: Limited # of times Start Date: 08/17/15 Stop Date: 08/17/15 Status: Discontinued meperidine 25 mg, 0.5 mL, Route: IM, Drug form: INJ, Q3H, Dosing Weight 85.455, kg, PRN Cora n Score 7-10, Start date: 08/17/15 15:22:00, Duration: 48 hr, Stop date: 6 15:21:00 Notes: (Same As: Demerol) Start Date: 08/17/15 Stop Date: 08/18/15 Status: Discontinued midazolam (ANES) Route: IV, Drug form: SOLN, ONCE, Stop date: 08/17/15 12:56:00 Start Date: 08/17/15 Stop Date: 08/17/15 Status: Completed morphine 1 mg/ml JEWEL SAWYER (30 mg/30 mL) INJ Syringe 30 mg 30 mg, 30 mL, Route: IV, Initial Loading Dose: 2 mg, JEWEL SAWYER Dose: 1 mg, JEWEL SAWYER Lockou t: 15 minutes, Continuous Basal Rate: 0 mg, 4 Hour Limit (In MG): 16, Drug Form: INJ, Continuous, Start date: 08/17/15 15:30:00, Duration: 30 day, Stop date: 15:2... Notes: Dose: Delay: Basal rate: 4hr limit:( Same as:Figueroa-Alexei) Start Date: 08/17/15 Stop Date: 08/17/15 Status: Discontinued morphine Sulfate 4 mg, 2 mL, Route: IVP, Drug form: INJ, Q3H, Dosing Weight 85.455, kg, PRN Pain Score 4-6, Start date: 08/17/15 15:22:00, Duration: 30 day, Stop date: 09/16/15 15:21:00 Notes: (Same as:MORPhine Sulfate) Start Date: 08/17/15 Stop Date: 08/18/15 Status: Discontinued morphine Sulfate 2 mg, 1 mL, Route: IVP, Drug form: INJ, Q3H, Dosing Weight 85.455, kg, PRN Pain Score 1-3, Start date: 08/17/15 15:22:00, Duration: 30 day, Stop date: 09/16/15 15:21:00 Notes: (Same as:MORPhine Sulfate) Start Date: 08/17/15 Stop Date: 08/18/15 Status: Discontinued morphine Sulfate 6 mg, 3 mL, Route: IVP, Drug form: INJ, Q3H, Dosing Weight 85.455, kg, PRN Pain Score 7-10, Start date: 08/17/15 15:22:00, Duration: 30 day, Stop date: 09/16/15 15:21:00 Notes: (Same as:MORPhine Sulfate) Start Date: 08/17/15 Stop Date: 08/18/15 Status: Discontinued naloxone 0.04 mg, Route: IVP, Q2MIN, Dosing Weight 85.455, kg, PRN Narcotic Reversal, Sta rt date: 08/17/15 15:56:00, Duration: 8 doses or times, Stop date: Limited # of times Start Date: 08/17/15 Stop Date: 08/17/15 Status: Discontinued naloxone 0.04 mg, 0.1 mL, Route: IVP, Drug form: INJ, Q2MIN, Dosing Weight 85.455, kg, WV N Narcotic Reversal, Start date: 08/17/15 15:22:00, Duration: 30 day, Stop date: 09/16/15 15:21:00 Notes: Same as Narcan Start Date: 08/17/15 Stop Date: 08/17/15 Status: Discontinued ondansetron 4 mg, Route: IVP, ONCE, Dosing Weight 85.455, kg, PRN Nausea & Vomiting, Start date: 08/17/15 15:56:00 Start Date: 08/17/15 Stop Date: 08/17/15 Status: Discontinued ondansetron 4 mg, 2 mL, Route: IVP, Drug form: INJ, Q6H, Dosing Weight 85.455, kg, PRN Nause a & Vomiting, Start date: 08/17/15 15:22:00, Duration: 30 day, Stop date: 09/16/15 15:21:00 Notes: (Same as: Leena) MEDICATION WASTE Product Size: 4 mgProduct Was bethel: ___ mg Start Date: 08/17/15 Stop Date: 08/18/15 Status: Discontinued ondansetron (ANES) Route: IV, Drug form: INJ, ONCE, Stop date: 08/17/15 15:13:00 Start Date: 08/17/15 Stop Date: 08/17/15 Status: Completed oxyCODONE 5 mg, Route: PO, Drug form: TAB, Q4H, Dosing Weight 85.455, kg, PRN Pain Score 4 -6, Start date: 08/17/15 15:56:00, Duration: 30 day, Stop date: 09/16/15 15:55:0 0 Start Date: 08/17/15 Stop Date: 08/17/15 Status: Discontinued oxyCODONE 10 mg, Route: PO, Drug form: TAB, Q4H, Dosing Weight 85.455, kg, PRN Pain Score 7-10, Start date: 08/17/15 15:56:00, Duration: 30 day, Stop date: 09/16/15 15:55 :00 Start Date: 08/17/15 Stop Date: 08/17/15 Status: Discontinued phenylephrine (ANES) Route: IV, Drug form: INJ, ONCE, Stop date: 08/17/15 14:26:00 Start Date: 08/17/15 Stop Date: 08/17/15 Status: Completed Prilosec 20 mg oral delayed release capsule 20 mg=1 cap, PO, Daily, 0 Refill(s) Start Date: 08/12/15 Status: Ordered promethazine 6.25 mg, Route: IVPB, ONCE, Dosing Weight 85.455, kg, PRN Nausea & Vomiting, Start date: 08/17/15 15:56:00 Start Date: 08/17/15 Stop Date: 08/17/15 Status: Discontinued promethazine 12.5 mg, 0.5 mL, Route: IM, Drug form: INJ, Q4H, Dosing Weight 85.455, kg, PRN N ausea & Vomiting, Start date: 08/17/15 15:22:00, Duration: 30 day, Stop date: 09/16/15 15:21:00 Notes: Do not give IV push. (Same as: Phenergan) Start Date: 08/17/15 Stop Date: 08/18/15 Status: Discontinued propofol (ANES) Route: IV, Drug form: INJ, ONCE, Stop date: 08/17/15 13:06:00 Start Date: 08/17/15 Stop Date: 08/17/15 Status: Completed rocuronium (ANES) Route: IV, Drug form: INJ, ONCE, Stop date: 08/17/15 13:06:00 Start Date: 08/17/15 Stop Date: 08/17/15 Status: Completed simethicone 160 mg, 2 tab, Route: PO, Drug form: CHEWTAB, Q2H, Dosing Weight 85.455, kg, PRN Gas, Start date: 08/17/15 15:22:00, Duration: 30 day, Stop date: 09/16/15 15:21 :00 Notes: (Same as: Inez) Start Date: 08/17/15 Stop Date: 08/18/15 Status: Discontinued Unknown Home Medication VAG, Daily, Refill(s) 0 Start Date: 08/12/15 Status: Ordered zolpidem 5 mg, 1 tab, Route: PO, Drug form: TAB, Bedtime, Dosing Weight 85.455, kg, PRN I nsomnia, Start date: 08/17/15 15:22:00, Duration: 30 day, Stop date: 09/16/15 15 :21:00 Notes: (Same As: Stevie) Start Date: 08/17/15 Stop Date: 08/18/15 Status: Discontinued Results BLOOD BANK RESULTS 1 2 3 Most recent to oldest [Reference Range]: O POS *Unknown* (08/12/15 3:13 PM) ABO/Rh Negative (08/12/15 3:13 PM) Antibody Scrn ELECTROLYTES 1 2 3 Most recent to oldest [Reference Range]: 140 mEq/L (08/18/15 6:26 AM) 142 mEq/L (08/12/15 3:13 PM) Sodium Lvl [135-145 mEq/L] 4.2 mEq/L (08/18/15 6:26 AM) 3.6 mEq/L (08/12/15 3:13 PM) Potassium Lvl [3.5-5.1 mEq/L] 106 mEq/L (08/18/15:26 AM) 108 mEq/L (08/12/15 3:13 PM) Chloride Lvl [95-109 mEq/L] 25 mEq/L (08/18/15 6:26 AM) 26 mEq/L (08/12/15 3:13 PM) CO2 [24-32 mEq/L] 13.2 mEq/L (08/18/15: AM) 11.6 mEq/L (08/12/15 3:13 PM) AGAP [10.0-20.0 mEq/L] CHEM PANEL 1 2 3 Most recent to oldest [Reference Range]: 0.79 mg/dL (08/18/15: AM) 0.67 mg/dL (08/12/15 3:13 PM) Creatinine Lvl [0.50-1.40 mg/dL] 84 mL/min/1.73m2 1 *NA* (08/18/15:26 AM) 99 mL/min/1.73m2 2 *NA* (08/12/15 3:13 PM) eGFR 16 mg/dL (08/18/15:26 AM) 12 mg/dL (08/12/15 3:13 PM) BUN [7-22 mg/dL] 18 (08/12/15 3:13 PM) B/C Ratio [6-25] 117 mg/dL *HI* (08/18/15 6:26 AM) 110 mg/dL *HI* (08/12/15 3:13 PM) Glucose Lvl [70-99 mg/dL] 7.9 g/dL (08/12/15 3:13 PM) Total Protein [6.4-8.4 g/dL] 4.1 g/dL (08/12/15 3:13 PM) Albumin Lvl [3.5-5.0 g/dL] 3.8 g/dL (08/12/15 3:13 PM) Globulin [2.0-4.0 g/dL] 1.1 (08/12/15 3:13 PM) A/G Ratio [0.7-1.6] 7.6 mg/dL *LOW* (08/18/15 6:26 AM) 8.6 mg/dL (08/12/15 3:13 PM) Calcium Lvl [8.5-10.5 mg/dL] 60 unit/L (08/12/15 3:13 PM) ALT [0-65 unit/L] 31 unit/L (08/12/15 3:13 PM) AST [0-37 unit/L] 79 unit/L (08/12/15 3:13 PM) Alk Phos [39-136 unit/L] 0.9 mg/dL (08/12/15 3:13 PM) Bili Total [0.2-1.3 mg/dL] 1Result Comment: The eGFR is calculated using [...] be mul tiplied by the estimated BMI. ENDOCRINOLOGY 1 2 3 Most recent to oldest [Reference Range]: Negative *NA* (08/12/15 3:13 PM) S Preg [Negative] URINE CHEM 1 2 3 Most recent to oldest [Reference Range]: Negative (08/17/15 7:00 PM) U Preg [Negative] HEMATOLOGY 1 2 3 Most recent to oldest [Reference Range]: 4.8 K/CMM (08/12/15 3:13 PM) WBC [3.7-10.4 K/CMM] 4.42 M/CMM (08/12/15 3:13 PM) RBC [4.20-5.40 M/CMM] 8.0 g/dL *LOW* (08/18/15 12:33 PM) 8.3 g/dL *LOW* (08/18/15 6:26 AM) 10.2 g/dL *LOW* (08/17/15 7:46 PM) Hgb [12.0-16.0 g/dL] 24.3 % *LOW* (08/18/15 12:33 PM) 25.3 % *LOW* (08/18/15 6:26 AM) 30.5 % *LOW* (08/17/15 7:46 PM) Hct [36.0-48.0 %] 85.4 fL (08/12/15 3:13 PM) MCV [80.0-98.0 fL] 28.7 pg (08/12/15 3:13 PM) MCH [27.0-31.0 pg] 33.6 g/dL (08/12/15 3:13 PM) MCHC [32.0-36.0 g/dL] 13.3 % (08/12/15 3:13 PM) RDW [11.5-14.5 %] 244 K/CMM (08/12/15 3:13 PM) Platelet [133-450 K/CMM] 7.7 fL (08/12/15 3:13 PM) MPV [7.4-10.4 fL] 47.8 % (08/12/15 3:13 PM) Segs [45.0-75.0 %] 40.8 % *HI* (08/12/15 3:13 PM) Lymphocytes [20.0-40.0 %] 5.5 % (08/12/15 3:13 PM) Monocytes [2.0-12.0 %] 4.9 % *HI* (08/12/15 3:13 PM) Eosinophils [0.0-4.0 %] 1.0 % (08/12/15 3:13 PM) Basophils [0.0-1.0 %] 2.3 K/CMM (08/12/15 3:13 PM) Segs-Bands # [1.5-8.1 K/CMM] 1.9 K/CMM (08/12/15 3:13 PM) Lymphocytes # [1.0-5.5 K/CMM] 0.3 K/CMM (08/12/15 3:13 PM) Monocytes # [0.0-0.8 K/CMM] 0.2 K/CMM (08/12/15 3:13 PM) Eosinophils # [0.0-0.5 K/CMM] Immunizations Vaccine Date Refusal Reason influenza virus vaccine, inactivated 08/18/15 Patient Refuses influenza virus vaccine, inactivated 08/18/15 Patient Refuses Procedures Procedure Date Related Diagnosis Body Site Arthroscopic knee operation Social History Social History Type Response Alcohol [...]
--- OUTSIDE RECORDS SUMMARY | 2018-05-17 08:21 | XMS REPORT | Summary of Care ---
Author Author [facility] Organization [facility] Address Unknown Phone Unavailable Encounter [facility] Jermaine(SANDEEP) [id number] Date(s): 01/05/17 - 01/05/17 [facility] [address] [place] [address]- Discharge Disposition: Home or Self Care Attending Physician: Ranjith Sotomayor MD Referring Physician: Ranjith Sotomayor MD Vital Signs No data available for [...]
--- OUTSIDE RECORDS SUMMARY | 2018-05-17 08:21 | XMS REPORT | Continuity of Care Document ---
Author Author [facility] Interface Address Unknown Phone Unavailable Problems Problem Status Onset Date Classification Date Reported Comments Source ROUTINE Active 03/21/2018 [facility] ROUTINE SCREENING LAST MMG W/MH Active 12/01/2016 [facility] MULTIPLE PELVIC ABSCESS, ABD PAIN Active 08/31/2015 [facility] VAGINAL BLEEDING Active 08/31/2015 [facility] UNK Active 07/20/2015 [facility] Z12.31 Active 07/19/2015 [facility] SCREENING FOR OSTEOPOROSIS Active 10/19/2014 [facility] 786.6; ATRIAL MASS Active 04/22/2014 [facility] SCREENING Active 09/12/2012 [facility] GERD (<span ID="[id number]</span>) Active Problem 01/08/2017 [facility] H/O vaginal hysterectomy Active Problem 01/08/2017 [facility] Incontinence Active Problem 01/08/2017 [facility] Knee injury Resolved Problem 01/08/2017 [facility] ACUTE PARAMETRITIS AND PELVIC CELLULITIS Active [facility] Medications Medication Details Route Status Patient Instructions Ordering Provider Order Date Source Prilosec 20 mg, Route: PO, Drug form: DRC, Daily, Dosing Weight 84.091, kg, Start date: 09/04/15 9:00:00 CDT, Duration: 30 day, Stop date: 10/03/15 9:00:00 CDT No Longer Active 09/04/2015 [facility] Omeprazole 20 MG Enteric Coated Capsule [Prilosec] 20 mg, PO, Daily, 0 Refill(s) Active 09/04/2015 [facility] ibuprofen 600 mg oral tablet 600 mg=1 tab, PO, Q6H, PRN Pain Score 1-3, 0 Refill(s) Active 09/04/2015 [facility] Acetaminophen 325 MG / Hydrocodone Bitartrate 5 MG Oral Tablet [[place] 5/325] 2 tab, PO, Q6H, PRN Pain Score 4-6, 0 Refill(s) Active 09/04/2015 [facility] pantoprazole 40 mg, 1 tab, Route: PO, Drug form: ECTAB, Before Dinner, Dosing Weight 84.091, kg, Start date: 09/03/15 16:30:00 CDT, Duration: 30 day, Stop date: 10/02/15 16:30:00 CDTNotes: Tablet should not be ch ewed or crushed. (Same as: Protonix) Inactive 09/03/2015 [facility] Acetaminophen 325 MG / Hydrocodone Bitartrate 5 MG Oral Tablet [[place] 5/325] 2 tab, Route: PO, Drug Form: TAB, Dosing Weight 84.091, kg, Q6H, PRN Pain Score 4-6, Start date: 09/02/15 19:14:00 CDT, Duration: 30 day, Stop date: 10/02/15 19:13:00 CDTNotes: (Same as: [place] 325/5) Do not exceed 4gm/day of acetaminophen. No Longer Active 09/03/2015 [facility] Motrin 600 mg, 1 tab, Route: PO, Drug form: TAB, Q6H, Dosing Weight 84.091, kg, PRN Pain Score 1-3, Start date: 09/02/15 19:13:00 CDT, Duration: 30 day, Stop date: 10/02/15 19:12:00 CDTNotes: (Same as: Motrin) "Do Not Crush" Take with food. No Longer Active 09/03/2015 [facility] Ketorolac 30 mg, 1 mL, Route: IVP, Drug form: INJ, Q6H, Dosing Weight 84.091, kg, PRN Pain Score 6-10, Start date: 09/02/15 19:12:00 CDT, Duration: 4 day, Stop date: 09/06/15 19:11:00 CDTNotes: (Same as:Toradol) IV bolus must be given >15 seconds. Give IM administration slowly and deeply into the muscle. Not for use > 4 days MEDICATION WASTE Product Size: 30 mg Product Wasted: ___ mg No Longer Active 09/03/2015 [facility] D5NS 1,000 mL 1,000 mL, Rate: 125 ml/hr, Infuse over: 8 hr, Route: IV, Dosing Weight 84.091 kg, Total Volume: 1,000, Start date: 09/01/15 12:07:00 CDT, Duration: 30 day, Stop date: 10/01/15 12:06:00 CDT No Longer Active 09/01/2015 [facility] Zosyn 3.375 gm, Route: IVPB, Drug form: PDR/INJ, ABXQ6H, Dosing Weight 84.091, kg, Start date: 08/31/15 20:00:00 CDT, Duration: 30 day, Stop date: 09/30/15 14:00:00 CDT Inactive 09/01/2015 [facility] Flagyl 500 mg, Route: IVPB, ABXQ8H, Dosing Weight 84.091, kg, Start date: 08/31/15 20:00:00 CDT, Duration: 30 day, Stop date: 09/30/15 12:00:00 CDT Inactive 09/01/2015 [facility] Dilaudid 1 mg, Route: IV, Q4H, Dosing Weight 84.091, kg, PRN Pain Score 7-10, Start date: 08/31/15 19:07:00 CDT, Duration: 30 day, Stop date: 09/30/15 19:06:00 CDT Inactive 09/01/2015 [facility] Ketorolac 30 mg, Route: IV, Drug form: INJ, Q6H, Dosing Weight 84.091, kg, PRN Pain Score 6-10, Start date: 08/31/15 19:07:00 CDT, Duration: 4 day, Stop date: 09/04/15 19:06:00 CDT Inactive 09/01/2015 [facility] Lactated Ringers IV 1,000 mL 1,000 mL, Rate: 75 ml/hr, Infuse over: 13.3 hr, Route: IV, Dosing Weight 84.091 kg, Total Volume: 1,000, Start date: 08/31/15 19:07:00 CDT, Duration: 30 day, Stop date: 09/30/15 19:06:00 CDT No Longer Active 09/01/2015 [facility] Acetaminophen 650 mg, 2 tab, Route: PO, Drug form: TAB, Q4H, Dosing Weight 84.091, kg, PRN Pain 1-3/Temp > 100.4 F, Start date: 08/31/15 19:07:00 CDT, Duration: 30 day, Stop date: 09/30/15 19:06:00 CDTNotes: Do not exceed 4 gm/day. (Same as: Tylenol) No Longer Active 09/01/2015 [facility] Ondansetron 4 mg, 2 mL, Route: IVP, Drug form: INJ, Q6H, Dosing Weight 84.091, kg, PRN Nausea & Vomiting, Start date: 08/31/15 19:07:00 CDT, Duration: 30 day, Stop date: 09/30/15 19:06:00 CDTNotes: (Same as: Zofran) MEDICATION WASTE Product Size: 4 mg Product Wasted: ___ mg No Longer Active 09/01/2015 [facility] Simethicone 160 mg, 2 tab, Route: PO, Drug form: CHEWTAB, Q2H, Dosing Weight 84.091, kg, PRN Gas, Start date: 08/31/15 19:07:00 CDT, Duration: 30 day, Stop date: 09/30/15 19:06:00 CDTNotes: (Same as: Mylicon) No Longer Active 09/01/2015 [facility] Docusate 100 mg, 1 cap, Route: PO, Drug form: CAP, BID, Dosing Weight 84.091, kg, PRN Constipation, Start date: 08/31/15 19:07:00 CDT, Duration: 30 day, Stop date: 09/30/15 19:06:00 CDTNotes: (Same as: Colace) (Do Not Crush) No Longer Active 09/01/2015 [facility] Morphine 4 mg, 2 mL, Route: IVP, Drug form: INJ, Q3H, Dosing Weight 84.091, kg, PRN Pain Score 4-6, Start date: 08/31/15 19:07:00 CDT, Stop date: 09/30/15 19:06:00 CDTNotes: (Same as:MORPhine Sulfate) No Longer Active 09/01/2015 [facility] Hydromorphone 1 mg, 1 mL, Route: IVP, Drug form: INJ, Q4H, Dosing Weight 84.091, kg, PRN Pain Score 7-10, Start date: 08/31/15 19:07:00 CDT, Duration: 30 day, Stop date: 09/30/15 19:06:00 CDT Inactive 09/01/2015 [facility] Promethazine 6.25 mg, Route: IVPB, ONCE, Dosing Weight 84.091, kg, PRN Nausea & Vomiting, Start date: 08/31/15 19:06:00 CDT Inactive 09/01/2015 [facility] Ondansetron 4 mg, Route: IVP, ONCE, Dosing Weight 84.091, kg, PRN Nausea & Vomiting, Start date: 08/31/15 19:06:00 CDT Inactive 09/01/2015 [facility] Dexamethasone 4 mg, Route: IVP, ONCE, Dosing Weight 84.091, kg, PRN Nausea & Vomiting, Start date: 08/31/15 19:06:00 CDT Inactive 09/01/2015 [facility] Metoprolol 1 mg, Route: IVP, Q5Min, Dosing Weight 84.091, kg, PRN Other -See Comment, Start date: 08/31/15 19:06:00 CDT, Duration: 5 doses or times, Stop date: Limited # of times Inactive 09/01/2015 [facility] Hydralazine 10 mg, Route: IVP, Q20Min, Dosing Weight 84.091, kg, PRN Elevated BP, Start date: 08/31/15 19:06:00 CDT, Duration: 2 doses or times, Stop date: Limited # of times Inactive 09/01/2015 [facility] Oxycodone 5 mg, Route: PO, Drug form: TAB, Q4H, Dosing Weight 84.091, kg, PRN Pain Score 4-6, Start date: 08/31/15 19:06:00 CDT, Duration: 30 day, Stop date: 09/30/15 19:05:00 CDT Inactive 09/01/2015 [facility] Glycopyrrolate 0.2 mg, Route: IVP, Q5Min, Dosing Weight 84.091, kg, PRN Bradycardia, Start date: 08/31/15 19:06:00 CDT, Duration: 3 doses or times, Stop date: Limited # of times Inactive 09/01/2015 [facility] Diphenhydramine 12.5 mg, Route: IVP, Drug form: INJ, Q6H, Dosing Weight 84.091, kg, PRN Itching, Start date: 08/31/15 19:06:00 CDT, Duration: 30 day, Stop date: 09/30/15 19:05:00 CDT Inactive 09/01/2015 [facility] Naloxone 0.04 mg, Route: IVP, Q2MIN, Dosing Weight 84.091, kg, PRN Narcotic Reversal, Start date: 08/31/15 19:06:00 CDT, Duration: 8 doses or times, Stop date: Limited # of times Inactive 09/01/2015 [facility] Morphine 2 mg, Route: IVP, Q5Min, Dosing Weight 84.091, kg, PRN Pain Score 4-6, Start date: 08/31/15 19:06:00 CDT, Duration: 5 doses or times, Stop date: Limited # of times Inactive 09/01/2015 [facility] Hydromorphone 0.5 mg, Route: IVP, Q5Min, Dosing Weight 84.091, kg, PRN Pain Score 7-10, Start date: 08/31/15 19:06:00 CDT, Duration: 4 doses or times, Stop date: Limited # of times Inactive 09/01/2015 [facility] Flumazenil 0.2 mg, Route: IVP, PRN, Dosing Weight 84.091, kg, PRN Benzodiazepine Reversal, Initial dose, Start date: 08/31/15 19:06:00 CDT, Duration: 30 day, Stop date: 09/30/15 19:05:00 CDT Inactive 09/01/2015 [facility] Meperidine 12.5 mg, Route: IVP, Q30Min, Dosing Weight 84.091, kg, PRN Other -See Comment, For shivering, Start date: 08/31/15 19:06:00 CDT, Duration: 2 doses or times, Stop date: Limited # of times Inactive 09/01/2015 [facility] Fentanyl 25 microgram, Route: IVP, Q5Min, Dosing Weight 84.091, kg, PRN Pain Score 4-6, Start date: 08/31/15 19:06:00 CDT, Duration: 4 doses or times, Stop date: Limited # of times Inactive 09/01/2015 [facility] Ketorolac 30 mg, Route: IVP, ONCE, Dosing Weight 84.091, kg, Start date: 08/31/15 19:06:00 CDT, Duration: 1 doses or times, Stop date: 08/31/15 19:06:00 CDT Inactive 09/01/2015 [facility] Flagyl 500 mg, 100 mL, Route: IVPB, Drug form: INJ, ABXQ8H, Dosing Weight 84.091, kg, Start date: 08/31/15 19:00:00 CDT, Duration: 30 day, Stop date: 09/30/15 11:00:00 CDTNotes: (Same as: Flagyl) Avoid alcohol. No Longer Active 09/01/2015 [facility] Zosyn 3.375 gm, Route: IVPB, ABXQ8H, Dosing Weight 84.091, kg, Start date: 08/31/15 19:00:00 CDT, Duration: 30 day, Stop date: 09/30/15 11:00:00 CDTNotes: (Same as: Zosyn) Dosing based on Piperacillin component MEDICATION WASTE Product Size: 3375 mg Product Wasted: ___ mg Inactive 09/01/2015 [facility] neostigmine (ANES) Route: IV, Drug form: INJ, ONCE, Stop date: 08/31/15 18:46:00 CDT Inactive 08/31/2015 [facility] glycopyrrolate (ANES) Route: IV, Drug form: INJ, ONCE, Stop date: 08/31/15 18:46:00 CDT Inactive 08/31/2015 [facility] hydromorphone (ANES) Route: IV, Drug form: INJ, ONCE, Stop date: 08/31/15 18:38:00 CDT Inactive 08/31/2015 [facility] phenylephrine (ANES) Route: IV, Drug form: INJ, ONCE, Stop date: 08/31/15 17:48:00 CDT Inactive 08/31/2015 [facility] dexamethasone (ANES) Route: IV, Drug form: INJ, ONCE, Stop date: 08/31/15 17:23:00 CDT Inactive 08/31/2015 [facility] ceFAZolin (ANES) Route: IV, Drug form: INJ, ONCE, Stop date: 08/31/15 17:23:00 CDT Inactive 08/31/2015 [facility] lidocaine (ANES) Route: IV, Drug form: INJ, ONCE, Stop date: 08/31/15 17:23:00 CDT Inactive 08/31/2015 [facility] fentaNYL (ANES) Route: IV, Drug form: INJ, ONCE, Stop date: 08/31/15 17:23:00 CDT Inactive 08/31/2015 [facility] propofol (ANES) Route: IV, Drug form: INJ, ONCE, Stop date: 08/31/15 17:23:00 CDT Inactive 08/31/2015 [facility] rocuronium (ANES) Route: IV, Drug form: INJ, ONCE, Stop date: 08/31/15 17:23:00 CDT Inactive 08/31/2015 [facility] acetaminophen (ANES) Route: IV, Drug form: INJ, ONCE, Stop date: 08/31/15 17:23:00 CDT Inactive 08/31/2015 [facility] ondansetron (ANES) Route: IV, Drug form: INJ, ONCE, Stop date: 08/31/15 17:23:00 CDT Inactive 08/31/2015 [facility] midazolam (ANES) Route: IV, Drug form: SOLN, ONCE, Stop date: 08/31/15 17:18:00 CDT Inactive 08/31/2015 [facility] Lactated Ringers Injection IV (ANES) (ANES) Route: IV, Total Volume: 1,000, Start date: 08/31/15 16:16:00 CDT, Stop date: 08/31/15 17:16:00 CDT Inactive 08/31/2015 [facility] LR IV 1,000 mL 1,000 mL, Rate: 40 ml/hr, Infuse over: 25 hr, Route: IV, Dosing Weight 84.091 kg, Total Volume: 1,000, Start date: 08/31/15 16:02:00 CDT, Duration: 30 day, Stop date: 09/30/15 16:01:00 CDT Inactive 08/31/2015 [facility] Hydromorphone 1 mg, 1 mL, Route: IV, Drug form: INJ, Q4H, Dosing Weight 84.091, kg, PRN Pain Score 7-10, Start date: 08/31/15 8:41:00 CDT, Duration: 30 day, Stop date: 09/30/15 8:40:00 CDT No Longer Active 08/31/2015 [facility] Morphine 2 mg, 1 mL, Route: IVP, Drug form: INJ, Q4H, Dosing Weight 84.091, kg, PRN Pain Score 7-10, Start date: 08/31/15 7:11:00 CDT, Duration: 30 day, Stop date: 09/30/15 7:10:00 CDTNotes: (Same as:MORPhine Sulfate) Inactive 08/31/2015 [facility] NS 1,000 mL 1,000 mL, Rate: 150 ml/hr, Infuse over: 6.7 hr, Route: IV, Dosing Weight 84.091 kg, Total Volume: 1,000, Start date: 08/31/15 7:11:00 CDT, Duration: 30 day, Stop date: 09/30/15 7:10:00 CDT Inactive 08/31/2015 [facility] Morphine 2 mg, Route: IVP, Drug form: INJ, ONCE, Dosing Weight 84.091, kg, Priority: STAT, Start date: 08/31/15 6:29:00 CDT, Stop date: 08/31/15 6:29:00 CDT Inactive 08/31/2015 [facility] Clindamycin 900 mg, 50 mL, Route: IVPB, Drug form: INJ, ABXQ8H, Dosing Weight 84.091, kg, Priority: STAT, Start date: 08/31/15 6:20:00 CDT, Duration: 30 day, Stop date: 09/29/15 22:20:00 CDT Inactive 08/31/2015 [facility] Gentamicin Sulfate (SHELTER) 80 mg, 100 mL, Route: IVPB, Drug form: INJ, ABXQ8H, Dosing Weight 84.091, kg, Priority: STAT, Start date: 08/31/15 6:19:00 CDT, Duration: 30 day, Stop date: 09/29/15 22:19:00 CDTNotes: TIME CRITICAL MEDICATION (Same as Garamycin) Inactive 08/31/2015 [facility] Ampicillin 2 gm, Route: IVPB, ABXQ6H, Dosing Weight 84.091, kg, Priority: STAT, Start date: 08/31/15 6:19:00 CDT, Duration: 30 day, Stop date: 09/30/15 0:19:00 CDTNotes: (Same as: Ran) MEDICATION WASTE Product Size: 2000 mg Product Wasted: ___ mg Inactive 08/31/2015 [facility] Zosyn 3.375 gm, Route: IVPB, Drug form: PDR/INJ, ONCE, Dosing Weight 84.091, kg, Priority: STAT, Start date: 08/31/15 6:01:00 CDT, Stop date: 08/31/15 6:01:00 CDT Inactive 08/31/2015 [facility] Zofran 4 mg, Route: IVP, Drug form: INJ, ONCE, Dosing Weight 84.091, kg, Priority: STAT, Start date: 08/31/15 3:50:00 CDT, Stop date: 08/31/15 3:50:00 CDT Inactive 08/31/2015 [facility] Morphine 2 mg, Route: IVP, Drug form: INJ, ONCE, Dosing Weight 84.091, kg, Priority: STAT, Start date: 08/31/15 3:50:00 CDT, Stop date: 08/31/15 3:50:00 CDT Inactive 08/31/2015 [facility] Sodium Chloride 0.154 MEQ/ML Injectable Solution 1,000 mL, 1,000 ml/hr, Infuse Over: 1 hr, Route: IV, ONCE, Priority: STAT, Dosing Weight 84.091 kg, Start date: 08/31/15 3:49:00 CDT, Duration: 1 doses or times, Stop date: 08/31/15 3:49:00 CDT Inactive 08/31/2015 [facility] Fluzone Preservative-Free Quadrivalent 0.5 mL, Route: IM, Drug Form: SUSP, Daily, Start date: 08/18/15 12:30:00, Stop date: 09/17/15 9:00:00Notes: (Same as: Fluzone Quadrivalent) For 3 years of age and older (0.5 mL IM) Shake well before use Inactive 08/18/2015 [facility] influenza virus vaccine, inactivated 0.5 mL, Route: IM, Drug Form: SUSP, Daily, Start date: 08/18/15 9:00:00, Stop date: 08/18/15 12:00:00Notes: (Same as: Fluzone Quadrivalent) For 3 years of age and older (0.5 mL IM) Shake well before use Inactive 08/18/2015 [facility] Ketorolac 30 mg, 1 mL, Route: IM, Drug form: INJ, Q6H, Dosing Weight 85.455, kg, Start date: 08/17/15 21:00:00, Duration: 4 day, Stop date: 08/21/15 18:00:00Notes: (Same as:Toradol) IV bolus must be given >15 seconds. Give IM administration slowly and deeply into the muscle. Not for use > 4 days MEDICATION WASTE Product Size: 30 mg Product Wasted: ___ mg No Longer Active 08/18/2015 [facility] ceFAZolin (SCIP) 2 gm, 100 mL, Route: IVPB, Drug form: INJ, ABXQ8H, Dosing Weight 85.455, kg, Start date: 08/17/15 20:00:00, Duration: 2 doses or times, Stop date: 08/18/15 4:00:00Notes: Same as: Ancef No Longer Active 08/18/2015 [facility] LR IV 500 mL 500 mL, Rate: 500 ml/hr, Infuse over: 1 hr, Route: IV, Dosing Weight 85.455 kg, Total Volume: 500, Start date: 08/17/15 18:47:00, Duration: 1 doses or times, Stop date: 08/17/15 19:46:00 Inactive 08/17/2015 [facility] ceFAZolin (SCIP) 2 gm, Route: IVPB, Drug form: INJ, Q8H, Dosing Weight 85.455, kg, Start date: 08/17/15 16:00:00, Duration: 2 doses or times, Stop date: 08/18/15 0:00:00 Inactive 08/17/2015 [facility] Fentanyl 25 microgram, Route: IVP, Q5Min, Dosing Weight 85.455, kg, PRN Pain Score 4-6, Start date: 08/17/15 15:56:00, Duration: 4 doses or times, Stop date: Limited # of times Inactive 08/17/2015 [facility] Flumazenil 0.2 mg, Route: IVP, PRN, Dosing Weight 85.455, kg, PRN Benzodiazepine Reversal, Initial dose, Start date: 08/17/15 15:56:00, Duration: 30 day, Stop date: 09/16/15 15:55:00 Inactive 08/17/2015 [facility] Naloxone 0.04 mg, Route: IVP, Q2MIN, Dosing Weight 85.455, kg, PRN Narcotic Reversal, Start date: 08/17/15 15:56:00, Duration: 8 doses or times, Stop date: Limited # of times Inactive 08/17/2015 [facility] Oxycodone 5 mg, Route: PO, Drug form: TAB, Q4H, Dosing Weight 85.455, kg, PRN Pain Score 4-6, Start date: 08/17/15 15:56:00, Duration: 30 day, Stop date: 09/16/15 15:55:00 Inactive 08/17/2015 [facility] Hydromorphone 0.5 mg, Route: IVP, Q5Min, Dosing Weight 85.455, kg, PRN Pain Score 7-10, Start date: 08/17/15 15:56:00, Duration: 4 doses or times, Stop date: Limited # of times Inactive 08/17/2015 [facility] Meperidine 12.5 mg, Route: IVP, Q30Min, Dosing Weight 85.455, kg, PRN Other -See Comment, For shivering, Start date: 08/17/15 15:56:00, Duration: 2 doses or times, Stop date: Limited # of times Inactive 08/17/2015 [facility] Promethazine 6.25 mg, Route: IVPB, ONCE, Dosing Weight 85.455, kg, PRN Nausea & Vomiting, Start date: 08/17/15 15:56:00 Inactive 08/17/2015 [facility] Albuterol 0.83 MG/ML Inhalant Solution 2.49 mg, Route: NEB, Q20Min, Dosing Weight 85.455, kg, PRN Wheezing, Priority: STAT, Start date: 08/17/15 15:56:00, Duration: 30 day, Stop date: 09/16/15 15:55:00 Inactive 08/17/2015 [facility] Ondansetron 4 mg, Route: IVP, ONCE, Dosing Weight 85.455, kg, PRN Nausea & Vomiting, Start date: 08/17/15 15:56:00 Inactive 08/17/2015 [facility] Diphenhydramine 12.5 mg, Route: IVP, Drug form: INJ, Q6H, Dosing Weight 85.455, kg, PRN Itching, Start date: 08/17/15 15:56:00, Duration: 30 day, Stop date: 09/16/15 15:55:00 Inactive 08/17/2015 [facility] Morphine 30 mg, 30 mL, Route: IV, Initial Loading Dose: 2 mg, [employer] Dose: 1 mg, [employer] Lockout: 15 minutes, Continuous Basal Rate: 0 mg, 4 Hour Limit (In MG): 16, Drug Form: INJ, Continuous, Start date: 08/17/15 15: 30:00, Duration: 30 day, Stop date: 09/16/15 15:2...Notes: Dose: Delay: Basal rate: 4hr limit: (Same as:Hopei-Alexei) Inactive 08/17/2015 [facility] Naloxone 0.04 mg, 0.1 mL, Route: IVP, Drug form: INJ, Q2MIN, Dosing Weight 85.455, kg, PRN Narcotic Reversal, Start date: 08/17/15 15:22:00, Duration: 30 day, Stop date: 09/16/15 15:21:00Notes: Same as Narcan Inactive 08/17/2015 [facility] Ondansetron 4 mg, 2 mL, Route: IVP, Drug form: INJ, Q6H, Dosing Weight 85.455, kg, PRN Nausea & Vomiting, Start date: 08/17/15 15:22:00, Duration: 30 day, Stop date: 09/16/15 15:21:00Notes: (Same as: Zofran) MEDICATION WASTE Product Size: 4 mg Product Wasted: ___ mg No Longer Active 08/17/2015 [facility] Promethazine 12.5 mg, 0.5 mL, Route: IM, Drug form: INJ, Q4H, Dosing Weight 85.455, kg, PRN Nausea & Vomiting, Start date: 08/17/15 15:22:00, Duration: 30 day, Stop date: 09/16/15 15:21:00Notes: Do not give IV pu sh. (Same as: Phenergan) No Longer Active 08/17/2015 [facility] Docusate 100 mg, 1 cap, Route: PO, Drug form: CAP, BID, Dosing Weight 85.455, kg, PRN Constipation, Start date: 08/17/15 15:22:00, Duration: 30 day, Stop date: 09/16/15 15:21:00Notes: (Same as: Colace) (Do Not Crush) No Longer Active 08/17/2015 [facility] Simethicone 160 mg, 2 tab, Route: PO, Drug form: CHEWTAB, Q2H, Dosing Weight 85.455, kg, PRN Gas, Start date: 08/17/15 15:22:00, Duration: 30 day, Stop date: 09/16/15 15:21:00Notes: (Same as: Mylicon) No Longer Active 08/17/2015 [facility] Acetaminophen 325 MG / Hydrocodone Bitartrate 5 MG Oral Tablet 1 tab, Route: PO, Drug Form: TAB, Dosing Weight 85.455, kg, Q4H, PRN Pain Score 1-3, Start date: 08/17/15 15:22:00, Duration: 30 day, Stop date: 09/16/15 15:21:00Notes: (Same as: [place] 325/5) Do not exceed 4gm/day of acetaminophen. No Longer Active 08/17/2015 [facility] Meperidine 25 mg, 0.5 mL, Route: IM, Drug form: INJ, Q3H, Dosing Weight 85.455, kg, PRN Pain Score 7-10, Start date: 08/17/15 15:22:00, Duration: 48 hr, Stop date: 08/19/15 15:21:00Notes: (Same As: Demerol) No Longer Active 08/17/2015 [facility] zolpidem 5 mg, 1 tab, Route: PO, Drug form: TAB, Bedtime, Dosing Weight 85.455, kg, PRN Insomnia, Start date: 08/17/15 15:22:00, Duration: 30 day, Stop date: 09/16/15 15:21:00Notes: (Same As: Ambien) No Longer Active 08/17/2015 [facility] Diphenhydramine 25 mg, 1 tab, Route: PO, Drug form: TAB, Bedtime, Dosing Weight 85.455, kg, PRN Insomnia, Start date: 08/17/15 15:22:00, Duration: 30 day, Stop date: 09/16/15 15:21:00 No Longer Active 08/17/2015 [facility] Morphine 4 mg, 2 mL, Route: IVP, Drug form: INJ, Q3H, Dosing Weight 85.455, kg, PRN Pain Score 4-6, Start date: 08/17/15 15:22:00, Duration: 30 day, Stop date: 09/16/15 15:21:00Notes: (Same as:MORPhine Sulfate) No Longer Active 08/17/2015 [facility] Calcium Chloride 0.0014 MEQ/ML / Potassium Chloride 0.004 MEQ/ML / Sodium Chloride 0.103 MEQ/ML / Sodium Lactate 0.028 MEQ/ML Injectable Solution 1,000 mL, Rate: 125 ml/hr, Infuse over: 8 hr, Route: IV, Dosing Weight 85.455 kg, Total Volume: 1,000, Start date: 08/17/15 15:22:00, Duration: 30 day, Stop date: 09/16/15 15:21:00 No Longer Active 08/17/2015 [facility] fentaNYL (ANES) Route: IV, Drug form: INJ, ONCE, Stop date: 08/17/15 15:21:00 Inactive 08/17/2015 [facility] ketOROLAC (ANES) IV, ONCE Inactive 08/17/2015 [facility] ondansetron (ANES) Route: IV, Drug form: INJ, ONCE, Stop date: 08/17/15 15:13:00 Inactive 08/17/2015 [facility] phenylephrine (ANES) Route: IV, Drug form: INJ, ONCE, Stop date: 08/17/15 14:26:00 Inactive 08/17/2015 [facility] dexamethasone (ANES) Route: IV, Drug form: INJ, ONCE, Stop date: 08/17/15 13:31:00 Inactive 08/17/2015 [facility] rocuronium (ANES) Route: IV, Drug form: INJ, ONCE, Stop date: 08/17/15 13:06:00 Inactive 08/17/2015 [facility] propofol (ANES) Route: IV, Drug form: INJ, ONCE, Stop date: 08/17/15 13:06:00 Inactive 08/17/2015 [facility] fentaNYL (ANES) Route: IV, Drug form: INJ, ONCE, Stop date: 08/17/15 13:06:00 Inactive 08/17/2015 [facility] lidocaine (ANES) Route: IV, Drug form: INJ, ONCE, Stop date: 08/17/15 13:06:00 Inactive 08/17/2015 [facility] ceFAZolin (ANES) Route: IV, Drug form: INJ, ONCE, Stop date: 08/17/15 13:01:00 Inactive 08/17/2015 [facility] midazolam (ANES) Route: IV, Drug form: SOLN, ONCE, Stop date: 08/17/15 12:56:00 Inactive 08/17/2015 [facility] acetaminophen (ANES) (ANES) Route: IV, Drug form: INJ, Start date: 08/17/15 12:44:00, Stop date: 08/17/15 13:44:00 Inactive 08/17/2015 [facility] ceFAZolin (ANES) (ANES) Route: IV, Drug form: INJ, Start date: 08/17/15 12:28:00, Stop date: 08/17/15 13:28:00 Inactive 08/17/2015 [facility] Lactated Ringers Injection IV (ANES) (ANES) Route: IV, Total Volume: 1,000, Start date: 08/17/15 12:15:00, Stop date: 08/17/15 13:15:00 Inactive 08/17/2015 [facility] Calcium Chloride 0.0014 MEQ/ML / Potassium Chloride 0.004 MEQ/ML / Sodium Chloride 0.103 MEQ/ML / Sodium Lactate 0.028 MEQ/ML Injectable Solution 1,000 mL, Rate: 25 ml/hr, Infuse over: 40 hr, Route: IV, Dosing Weight 85.455 kg, Total Volume: 1,000, Start date: 08/17/15 11:40:00, Duration: 30 day, Stop date: 09/16/15 11:39:00 Inactive 08/17/2015 [facility] Ancef 2 gm, Route: IVPB, ONCE, Dosing Weight 85.455, kg, Start date: 08/17/15 11:00:00, Duration: 1 doses or times, Stop date: 08/17/15 11:00:00 Inactive 08/17/2015 [facility] Unknown Home Medication VAG, Daily, Refill(s) 0 Active 08/12/2015 [facility] Omeprazole 20 MG Enteric Coated Capsule [Prilosec] 20 mg=1 cap, PO, Daily, 0 Refill(s) Active 08/12/2015 [facility] Allergies, Adverse Reactions, Alerts Substance Category Reaction Severity Reaction type Status Date Reported Comments Source Immunizations Immunization Date Given Site Status Last Updated Comments Source influenza virus vaccine, inactivated 08/18/2015 Not Given [facility] influenza virus vaccine, inactivated 08/18/2015 Not Given [facility] Results Order Name Results Value Reference Range Date Interpretation Comments Source Breast Mammo Scrn ALEC incl CAD MA Breast Mammo Scrn ALEC incl CAD MA BILATERAL DIGITAL SCREENING MAMMOGRAM WITH CAD: 03/22/2018 CLINICAL: /Routine. Current study was evaluated with a Computer Aided Detection (CAD) system. COMPARISON:Comparison is made to exams dated: 01/05/2017 mammogram, 11/05/2015 mammogram, 10/23/2014 mammogram, 10/01/2012 mammogram, 07/21/2011 mammogram, and 04/02/2009 mammogram - [facility]. TECHNIQUE: Mammographic views were obtained using digital acquisition. Prospera Version 1.3 was utilized for computer aided detection. FINDINGS: There are scattered fibroglandular densities in both breasts. There are benign calcifications in the right breast. No significant masses, calcifications, or other findings are seen in either breast. There has been no significant interval change. IMPRESSION: BENIGN RECOMMENDATION:There is no mammographic evidence of malignancy. A 1 year screening mammogram is recommended.(03/23/2019) This exam was interpreted at [id number] for [facility]. Bill silver/penrad:03/22/2018 09:05:04 Compliance Specialist(s): Arlene Nicholson [facility] letter sent: BI-RADS 1/2 Mammogram BI-RADS: 2 Benign 03/22/2018 - - Read by: Bill Pinzon MD Dictated Date/time: 03/22/18 09:05 Electronically Signed by: Bill Pinzon MD 03/22/18 09:05 FINAL REPORT [facility] Bone Density Scan Bone Density Scan BONE DENSITY: HISTORY: Osteopenia. TECHNIQUE: Dual energy x-ray absorptiometry (DEXA) was done over the lumbar spine and left hip on a Hologic Discovery SL scanner. FINDINGS: The total T-score over the lumbar spine is -1.7, consistent with osteopenia. The previous T-score on 10/23/2014 was -2.2, consistent with osteopenia. There has been a 5.8% increase in BMD since the last exam. The global T-score over the left hip is 0.3, consistent with normal bone density. The previous T-score was 0.3, consistent with normal bone density. There has been a 12.4% decrease in BMD since the last exam. The focal T-score over the left femoral neck is -0.7, consistent with normal bone density. The BMD is 0.791 g/sq cm. The previous T-score over the left femoral neck was -1.0, consistent with osteopenia, with a previous BMD of 0.757 g/sq cm. There has been a 4.5% increase in BMD since the previous exam. IMPRESSION: 1. Osteopenia of the lumbar spine. 2. Normal global bone density of the left hip. 3. Normal bone density of the left femoral neck. FOR YOUR INFORMATION: The World Health Organization has established that OSTEOPOROSIS occurs at -2.5 or more standard deviations (T-score) below peak bone mass (T-score on the Hologic report). OSTEOPENIA occurs at -1.0 to -2.5 standard deviations (T-score) below peak bone mass. [id number] 01/05/2017 - - Read by: Tony Taveras MD Dictated Date/time: 01/05/17 13:58 Electronically Signed by: Tony Taveras MD 01/05/17 14:00 FINAL REPORT [facility] Breast Mammo Scrn ALEC incl CAD NH Breast Mammo Scrn ALEC incl CAD MA - BREAST MAMMO SCRN ALEC INCL CAD MA BILATERAL DIGITAL SCREENING MAMMOGRAM WITH CAD: 01/05/2017 CLINICAL: Routine/Screen. Current study was evaluated with a Computer Aided Detection (CAD) system. Comparison is made to exams dated: 11/05/2015 mammogram, 10/23/2014 mammogram, 10/01/2012 mammogram, 07/21/2011 mammogram, 04/02/2009 mammogram and 12/20/2007 mammogram - [facility]. There are scattered fibroglandular densities in both breasts. There are benign calcifications in the right breast. No significant masses, calcifications, or other findings are seen in either breast. There has been no significant interval change. IMPRESSION: BENIGN There is no mammographic evidence of malignancy. A 1 year screening mammogram is recommended. Bill silver/penrad:01/05/2017 13:37:07 Compliance Specialist: Barbie Gandhi, [facility] This exam was dictated and interpreted by [id number] for [facility]. letter sent: Normal exam Mammogram BI-RADS: 2 Benign 01/05/2017 - - Read by: Bill Pinzon MD Dictated Date/time: 01/05/17 13:37 Electronically Signed by: Bill Pinzon MD 01/05/17 13:37 FINAL REPORT [facility] Digital Mammo Screening Alec MA Digital Mammo Screening Alec MA - DIGITAL MAMMO SCREENING ALEC MA BILATERAL DIGITAL SCREENING MAMMOGRAM WITH CAD: 11/05/2015 CLINICAL: Routine. Current study was evaluated with a Computer Aided Detection (CAD) system. Comparison is made to exams dated: 10/23/2014 mammogram, 10/01/2012 mammogram, 07/21/2011 mammogram, 04/02/2009 mammogram, 12/20/2007 mammogram - [facility] and 03/10/2005. There are scattered fibroglandular densities in both breasts. There are benign calcifications in the right breast. No significant masses, calcifications, or other findings are seen in either breast. There has been no significant interval change. IMPRESSION: BENIGN There is no mammographic evidence of malignancy. A 1 year screening mammogram is recommended. Bill silver/penrad:11/08/2015 08:23:59 Compliance Specialist: Barbie Gandhi, [facility] This exam was dictated and interpreted by [id number] for [facility]. letter sent: Normal exam Mammogram BI-RADS: 2 Benign 11/05/2015 - - Read by: Bill Pinzon MD Dictated Date/time: 11/08/15 08:23 Electronically Signed by: Bill Pinzon MD 11/08/15 08:23 FINAL REPORT [facility] CHEM PANEL Globulin 2.9 g/dL 2.0 - 4.0 09/03/2015 [facility] CHEM PANEL A/G Ratio 0.9 0.7 - 1.6 09/03/2015 [facility] CHEM PANEL AGAP 10.7 meq/L 10.0 - 20.0 09/03/2015 [facility] CHEM PANEL B/C Ratio 11 6 - 25 09/03/2015 [facility] CHEM PANEL eGFR 113 mL/min/1.73m2 09/03/2015 Result Comment: The eGFR is calculated using the [...] from the National Kidney Disease Education Program (NKDEP) which additionally recommends that when the eGFR is used in patients with extremes of body mass index for purposes of drug dosing, the eGFR should be multiplied by the estimated BMI. [facility] CHEM PANEL AST 20 unit/L 0 - 37 09/03/2015 [facility] CHEM PANEL Alk Phos 80 unit/L 39 - 136 09/03/2015 [facility] CHEM PANEL Bili Total 0.6 mg/dL 0.2 - 1.3 09/03/2015 [facility] CHEM PANEL CO2 22 meq/L 24 - 32 09/03/2015 [facility] CHEM PANEL Calcium Lvl 7.3 mg/dL 8.5 - 10.5 09/03/2015 [facility] CHEM PANEL Total Protein 5.4 g/dL 6.4 - 8.4 09/03/2015 [facility] CHEM PANEL Albumin Lvl 2.5 g/dL 3.5 - 5.0 09/03/2015 [facility] CHEM PANEL ALT 23 unit/L 0 - 65 09/03/2015 [facility] CHEM PANEL Glucose Lvl 111 mg/dL 70 - 99 09/03/2015 [facility] CHEM PANEL Potassium Lvl 3.7 meq/L 3.5 - 5.1 09/03/2015 [facility] CHEM PANEL Sodium Lvl 139 meq/L 135 - 145 09/03/2015 [facility] CHEM PANEL Chloride Lvl 110 meq/L 95 - 109 09/03/2015 [facility] CHEM PANEL Creatinine Lvl 0.44 mg/dL 0.50 - 1.40 09/03/2015 [facility] CHEM PANEL BUN 5 mg/dL 7 - 22 09/03/2015 [facility] HEMATOLOGY Hct 22.8 % 36.0 - 48.0 09/03/2015 [facility] HEMATOLOGY Hgb 7.5 g/dL 12.0 - 16.0 09/03/2015 [facility] HEMATOLOGY MCH 27.8 pg 27.0 - 31.0 09/03/2015 [facility] HEMATOLOGY MCV 84.3 fL 80.0 - 98.0 09/03/2015 [facility] HEMATOLOGY MCHC 33.0 g/dL 32.0 - 36.0 09/03/2015 [facility] HEMATOLOGY RBC 2.70 M/CMM 4.20 - 5.40 09/03/2015 [facility] HEMATOLOGY WBC 5.6 K/CMM 3.7 - 10.4 09/03/2015 [facility] HEMATOLOGY MPV 6.7 fL 7.4 - 10.4 09/03/2015 [facility] HEMATOLOGY Platelet 396 K/CMM 133 - 450 09/03/2015 [facility] HEMATOLOGY RDW 14.5 % 11.5 - 14.5 09/03/2015 [facility] HEMATOLOGY Segs 74.4 % 45.0 - 75.0 09/03/2015 [facility] HEMATOLOGY Lymphocytes # 0.9 K/CMM 1.0 - 5.5 09/03/2015 [facility] HEMATOLOGY Eosinophils # 0.2 K/CMM 0.0 - 0.5 09/03/2015 [facility] HEMATOLOGY Monocytes # 0.3 K/CMM 0.0 - 0.8 09/03/2015 [facility] HEMATOLOGY Lymphocytes 15.5 % 20.0 - 40.0 09/03/2015 [facility] HEMATOLOGY Basophils 0.5 % 0.0 - 1.0 09/03/2015 [facility] HEMATOLOGY Segs-Bands # 4.2 K/CMM 1.5 - 8.1 09/03/2015 [facility] HEMATOLOGY Eosinophils 3.4 % 0.0 - 4.0 09/03/2015 [facility] HEMATOLOGY Monocytes 6.2 % 2.0 - 12.0 09/03/2015 [facility] ELECTROLYTES Chloride Lvl 103 meq/L 95 - 109 09/01/2015 [facility] ELECTROLYTES Calcium Lvl 7.7 mg/dL 8.5 - 10.5 09/01/2015 [facility] ELECTROLYTES CO2 23 meq/L 24 - 32 09/01/2015 [facility] ELECTROLYTES Potassium Lvl 4.4 meq/L 3.5 - 5.1 09/01/2015 [facility] ELECTROLYTES BUN 10 mg/dL 7 - 22 09/01/2015 [facility] ELECTROLYTES Creatinine Lvl 0.67 mg/dL 0.50 - 1.40 09/01/2015 [facility] ELECTROLYTES Glucose Lvl 147 mg/dL 70 - 99 09/01/2015 [facility] ELECTROLYTES Sodium Lvl 136 meq/L 135 - 145 09/01/2015 [facility] ELECTROLYTES eGFR 99 mL/min/1.73m2 09/01/2015 Result Comment: The eGFR is calculated using the [...] from the National Kidney Disease Education Program (NKDEP) which additionally recommends that when the eGFR is used in patients with extremes of body mass index for purposes of drug dosing, the eGFR should be multiplied by the estimated BMI. [facility] ELECTROLYTES AGAP 14.4 meq/L 10.0 - 20.0 09/01/2015 [facility] HEMATOLOGY Basophils 0.3 % 0.0 - 1.0 09/01/2015 [facility] Monocytes 6.0 % 2.0 - 12.0 09/01/2015 [facility] Lymphocytes 5.1 % 20.0 - 40.0 09/01/2015 [facility] Segs-Bands # 11.8 K/CMM 1.5 - 8.1 09/01/2015 [facility] HEMATOLOGY Lymphocytes # 0.7 K/CMM 1.0 - 5.5 09/01/2015 [facility] HEMATOLOGY Monocytes # 0.8 K/CMM 0.0 - 0.8 09/01/2015 [facility] HEMATOLOGY Segs 88.6 % 45.0 - 75.0 09/01/2015 [facility] MPV 6.6 fL 7.4 - 10.4 09/01/2015 [facility] WBC 13.3 K/CMM 3.7 - 10.4 09/01/2015 [facility] RBC 3.30 M/CMM 4.20 - 5.40 09/01/2015 [facility] Hgb 9.2 g/dL 12.0 - 16.0 09/01/2015 [facility] Hct 28.0 % 36.0 - 48.0 09/01/2015 [facility] MCV 84.7 fL 80.0 - 98.0 09/01/2015 [facility] MCH 28.0 pg 27.0 - 31.0 09/01/2015 [facility] MCHC 33.0 g/dL 32.0 - 36.0 09/01/2015 [facility] RDW 14.1 % 11.5 - 14.5 09/01/2015 [facility] Platelet 410 K/CMM 133 - 450 09/01/2015 [facility] CHEM PANEL Creatinine Lvl 0.71 mg/dL 0.50 - 1.40 09/01/2015 [facility] CHEM PANEL eGFR 96 mL/min/1.73m2 09/01/2015 Result Comment: The eGFR is calculated using the [...] from the National Kidney Disease Education Program (NKDEP) which additionally recommends that when the eGFR is used in patients with extremes of body mass index for purposes of drug dosing, the eGFR should be multiplied by the estimated BMI. [facility] Platelet 431 K/CMM 133 - 450 09/01/2015 [facility] HEMATOLOGY PTT 35.9 s 22.9 - 35.8 09/01/2015 [facility] IMMUNOLOGY [place]-Hep C Ab Negative *NA* (08/31/15 10:09 AM) Negative 08/31/2015 [facility] CHEM PANEL Lactic Acid Lvl 2.0 mMol/L 0.5 - 2.2 08/31/2015 [facility] URINE AND STOOL UA Urobilinogen <=1.0 mg/dL 0.1 - 1.0 08/31/2015 [facility] URINE AND STOOL UA Nitrite Negative (08/31/15 5:06 AM) Negative 08/31/2015 [facility] URINE AND STOOL UA Bili Negative *NA* (08/31/15 5:06 AM) Negative 08/31/2015 [facility] URINE AND STOOL UA Blood Large *ABN* (08/31/15 5:06 AM) Negative 08/31/2015 [facility] URINE AND STOOL UA Amorph [place] Occasional /HPF None Seen /HPF 08/31/2015 [facility] URINE AND STOOL UA Bacteria Occasional /HPF None Seen /HPF 08/31/2015 [facility] URINE AND STOOL UA Ketones Negative mg/dL Negative mg/dL 08/31/2015 [facility] URINE AND STOOL UA Protein Negative mg/dL Negative mg/dL 08/31/2015 [facility] URINE AND STOOL UA Glucose Negative mg/dL Negative mg/dL 08/31/2015 [facility] URINE AND STOOL UA Leuk Est Trace *ABN* (08/31/15 5:06 AM) Negative 08/31/2015 [facility] URINE AND STOOL UA Sq Epi Occasional /LPF Few /LPF 08/31/2015 [facility] URINE AND STOOL UA WBC 11 /HPF 0 - 5 08/31/2015 [facility] URINE AND STOOL UA RBC 7 /HPF 0 - 2 08/31/2015 [facility] URINE AND STOOL UA Spec Grav 1.018 <=1.030 08/31/2015 [facility] URINE AND STOOL UA pH 7.0 5.0 - 8.0 08/31/2015 [facility] URINE AND STOOL UA Turbidity Slight *ABN* (08/31/15 5:06 AM) Clear 08/31/2015 [facility] URINE AND STOOL UA Color Yellow *NA* (08/31/15 5:06 AM) Yellow 08/31/2015 [facility] CHEM PANEL Lipase Lvl 83 unit/L 73 - 393 08/31/2015 [facility] CHEM PANEL A/G Ratio 1.0 0.7 - 1.6 08/31/2015 [facility] CHEM PANEL Globulin 3.8 g/dL 2.0 - 4.0 08/31/2015 [facility] CHEM PANEL B/C Ratio 15 6 - 25 08/31/2015 [facility] CHEM PANEL AGAP 10.1 meq/L 10.0 - 20.0 08/31/2015 [facility] CHEM PANEL Bili Total 1.0 mg/dL 0.2 - 1.3 08/31/2015 [facility] CHEM PANEL Albumin Lvl 3.7 g/dL 3.5 - 5.0 08/31/2015 [facility] CHEM PANEL BUN 10 mg/dL 7 - 22 08/31/2015 [facility] CHEM PANEL Glucose Lvl 132 mg/dL 70 - 99 08/31/2015 [facility] CHEM PANEL CO2 27 meq/L 24 - 32 08/31/2015 [facility] CHEM PANEL Chloride Lvl 101 meq/L 95 - 109 08/31/2015 [facility] CHEM PANEL Potassium Lvl 4.1 meq/L 3.5 - 5.1 08/31/2015 [facility] CHEM PANEL Sodium Lvl 134 meq/L 135 - 145 08/31/2015 [facility] CHEM PANEL Total Protein 7.5 g/dL 6.4 - 8.4 08/31/2015 [facility] CHEM PANEL Calcium Lvl 8.7 mg/dL 8.5 - 10.5 08/31/2015 [facility] CHEM PANEL Alk Phos 87 unit/L 39 - 136 08/31/2015 [facility] CHEM PANEL AST 14 unit/L 0 - 37 08/31/2015 [facility] CHEM PANEL ALT 19 unit/L 0 - 65 08/31/2015 [facility] HEMATOLOGY Hct 29.6 % 36.0 - 48.0 08/31/2015 [facility] HEMATOLOGY Hgb 9.7 g/dL 12.0 - 16.0 08/31/2015 [facility] HEMATOLOGY MCV 85.2 fL 80.0 - 98.0 08/31/2015 [facility] HEMATOLOGY RDW 14.2 % 11.5 - 14.5 08/31/2015 [facility] HEMATOLOGY MCH 27.9 pg 27.0 - 31.0 08/31/2015 [facility] MCHC 32.7 g/dL 32.0 - 36.0 08/31/2015 [facility] HEMATOLOGY WBC 11.9 K/CMM 3.7 - 10.4 08/31/2015 [facility] HEMATOLOGY RBC 3.47 M/CMM 4.20 - 5.40 08/31/2015 [facility] HEMATOLOGY MPV 6.3 fL 7.4 - 10.4 08/31/2015 [facility] HEMATOLOGY Segs 86.6 % 45.0 - 75.0 08/31/2015 [facility] HEMATOLOGY Lymphocytes 7.3 % 20.0 - 40.0 08/31/2015 [facility] HEMATOLOGY Monocytes 5.1 % 2.0 - 12.0 08/31/2015 [facility] HEMATOLOGY Monocytes # 0.6 K/CMM 0.0 - 0.8 08/31/2015 [facility] HEMATOLOGY Eosinophils # 0.1 K/CMM 0.0 - 0.5 08/31/2015 [facility] HEMATOLOGY Basophils 0.4 % 0.0 - 1.0 08/31/2015 [facility] HEMATOLOGY Segs-Bands # 10.3 K/CMM 1.5 - 8.1 08/31/2015 [facility] Eosinophils 0.6 % 0.0 - 4.0 08/31/2015 [facility] Lymphocytes # 0.9 K/CMM 1.0 - 5.5 08/31/2015 [facility] Abdomen/Pelvis w IV contrast CT Abdomen/Pelvis w IV contrast CT Study: Abdomen/Pelvis w IV contrast CT 08/31/2015 3:49 AM CDT Patient Name: YOMI WHALEN MR: [id number] : 1960; Age: 55 years y/o Female Ordering Physician: Oc Vila MD Clinical Indication: Acute generalized abdominal pain. Vaginal bleeding. s/p hysterectomy Comparison: None TECHNIQUE: Contiguous transaxial CT images were obtained from the diaphragm through the symphysis pubis.Sagittal and coronal reformatted images were prepared. IV CONTRAST: Yes GI CONTRAST: No. CT ABDOMEN WITH CONTRAST: SOLID ORGANS: 1. Mildly prominent gallbladder without calcified gallstones, pericholecystic inflammation, or biliary dilatation. 2. Normal size kidneys with suspected tiny subcentimeter right renal cyst. 3. Normal liver, pancreas, spleen, and adrenal glands. BOWEL: 1. Nonspecific bowel gas pattern with diffuse colonic fluid consistent with a diarrheal state. Small thick-walled hiatal hernia.The appendix is difficult to identify with certainty obscured by a large amount of inflammatory change in the pelvis. 2. A large peripherally enhancing low-attenuation collection with some scattered gas and a small calcification (possibly an appendicolith) is seen centrally in the pelvis measuring 9.1 x 6.8 x 4.1 cm. Although the appendix cannot be identified with certainty, the inflammation, abscess, and suspected appendicolith are suspicious for ruptured acute appendicitis with large periappendiceal abscess. However, clinical correlation is required as findings could represent pelvic inflammatory disease and abscess as well. An additional mildly peripherally enhancing somewhat masslike low-attenuation collection measuring up to 5.0 cm is seen posteriorly to the urinary bladder possibly an abscess or phlegmon as well. 3. Thickening of the rectosigmoid colon and adjacent small bowel loops is likely related to close proximity to these inflammatory changes. No becky pneumoperitoneum is otherwise appreciated. PERITONEUM: No free intraperitoneal fluid or air. RETROPERITONEUM: Lymph nodes: Multiple scattered subcentimeter in maximum shortness axis retroperitoneal lymph nodes. Tiny fat-containing umbilical hernia. Abdominal aorta: Normal caliber abdominal aorta. LUNG BASES: Clear lung bases. Normal size heart. OSSEOUS STRUCTURES: No fracture, dislocation, or suspicious focal osseous lesion. CT PELVIS WITH CONTRAST: URINARY BLADDER: Under distended thick-walled. An additional mildly peripherally enhancing fluid collection measuring up to 5.0 cm is seen posteriorly to the urinary bladder possibly an abscess as well. SOLID ORGANS: The uterus is not identified with certainty. The ovaries are obscured by inflammation. A 2.0 cm focus of fat in the right adnexa may represent peritoneal fat surrounded by inflammatory change or possibly a dermoid. LYMPH NODES: No lymphadenopathy or mass. FREE FLUID: No free pelvic fluid. OSSEOUS STRUCTURES: No fracture, dislocation, or suspicious focal osseous lesion. IMPRESSION: 1. Prominent inflammatory change and abscess formation in the pelvis as above discussed. Although the appendix cannot be identified with certainty, the constellation of findings is suspicious for ruptured acute appendicitis and large abscess. Clinical correlation and follow-up are needed as pelvic inflammatory disease an abscess cannot be excluded. Delayed CT pelvis with enteric and rectal contrast may be helpful for differentiation. 2. Colonic fluid consistent with a diarrheal state. 3. Moderate-sized thick-walled hiatal hernia. 4. Tiny right renal cyst. SL: [id number] 08/31/2015 - - Read by: Biju Luo MD Dictated Date/time: 08/31/15 05:52 Electronically Signed by: Biju Luo MD 08/31/15 06:05 FINAL REPORT [facility] HEMATOLOGY Hgb 8.0 g/dL 12.0 - 16.0 08/18/2015 [facility] HEMATOLOGY Hct 24.3 % 36.0 - 48.0 08/18/2015 [facility] CHEM PANEL Calcium Lvl 7.6 mg/dL 8.5 - 10.5 08/18/2015 [facility] CHEM PANEL Potassium Lvl 4.2 meq/L 3.5 - 5.1 08/18/2015 [facility] CHEM PANEL CO2 25 meq/L 24 - 32 08/18/2015 [facility] CHEM PANEL Chloride Lvl 106 meq/L 95 - 109 08/18/2015 [facility] CHEM PANEL BUN 16 mg/dL 7 - 22 08/18/2015 [facility] CHEM PANEL Creatinine Lvl 0.79 mg/dL 0.50 - 1.40 08/18/2015 [facility] CHEM PANEL Glucose Lvl 117 mg/dL 70 - 99 08/18/2015 [facility] CHEM PANEL Sodium Lvl 140 meq/L 135 - 145 08/18/2015 [facility] CHEM PANEL eGFR 84 mL/min/1.73m2 08/18/2015 Result Comment: The eGFR is calculated using the [...] from the National Kidney Disease Education Program (NKDEP) which additionally recommends that when the eGFR is used in patients with extremes of body mass index for purposes of drug dosing, the eGFR should be multiplied by the estimated BMI. [facility] CHEM PANEL AGAP 13.2 meq/L 10.0 - 20.0 08/18/2015 [facility] HEMATOLOGY Hgb 8.3 g/dL 12.0 - 16.0 08/18/2015 [facility] HEMATOLOGY Hct 25.3 % 36.0 - 48.0 08/18/2015 [facility] HEMATOLOGY Hct 30.5 % 36.0 - 48.0 08/18/2015 [facility] HEMATOLOGY Hgb 10.2 g/dL 12.0 - 16.0 08/18/2015 [facility] URINE CHEM U Preg Negative (08/17/15 7:00 PM) Negative 08/18/2015 [facility] BLOOD BANK RESULTS ABO/Rh O POS 08/12/2015 [facility] BLOOD BANK RESULTS Antibody Scrn Negative (08/12/15 3:13 PM) 08/12/2015 [facility] CHEM PANEL eGFR 99 mL/min/1.73m2 08/12/2015 Result Comment: The eGFR is calculated using the [...] from the National Kidney Disease Education Program (NKDEP) which additionally recommends that when the eGFR is used in patients with extremes of body mass index for purposes of drug dosing, the eGFR should be multiplied by the estimated BMI. [facility] CHEM PANEL Globulin 3.8 g/dL 2.0 - 4.0 08/12/2015 [facility] CHEM PANEL A/G Ratio 1.1 0.7 - 1.6 08/12/2015 [facility] CHEM PANEL Glucose Lvl 110 mg/dL 70 - 99 08/12/2015 [facility] CHEM PANEL Sodium Lvl 142 meq/L 135 - 145 08/12/2015 [facility] CHEM PANEL Creatinine Lvl 0.67 mg/dL 0.50 - 1.40 08/12/2015 [facility] CHEM PANEL BUN 12 mg/dL 7 - 22 08/12/2015 [facility] CHEM PANEL CO2 26 meq/L 24 - 32 08/12/2015 [facility] CHEM PANEL Calcium Lvl 8.6 mg/dL 8.5 - 10.5 08/12/2015 [facility] CHEM PANEL Potassium Lvl 3.6 meq/L 3.5 - 5.1 08/12/2015 [facility] CHEM PANEL Chloride Lvl 108 meq/L 95 - 109 08/12/2015 [facility] CHEM PANEL ALT 60 unit/L 0 - 65 08/12/2015 [facility] CHEM PANEL AST 31 unit/L 0 - 37 08/12/2015 [facility] CHEM PANEL Total Protein 7.9 g/dL 6.4 - 8.4 08/12/2015 [facility] CHEM PANEL Albumin Lvl 4.1 g/dL 3.5 - 5.0 08/12/2015 [facility] CHEM PANEL Alk Phos 79 unit/L 39 - 136 08/12/2015 [facility] CHEM PANEL Bili Total 0.9 mg/dL 0.2 - 1.3 08/12/2015 [facility] CHEM PANEL AGAP 11.6 meq/L 10.0 - 20.0 08/12/2015 [facility] CHEM PANEL B/C Ratio 18 6 - 25 08/12/2015 [facility] ENDOCRINOLOGY S Preg Negative *NA* (08/12/15 3:13 PM) Negative 08/12/2015 [facility] Lymphocytes 40.8 % 20.0 - 40.0 08/12/2015 [facility] Monocytes 5.5 % 2.0 - 12.0 08/12/2015 [facility] HEMATOLOGY Segs 47.8 % 45.0 - 75.0 08/12/2015 [facility] Monocytes # 0.3 K/CMM 0.0 - 0.8 08/12/2015 [facility] HEMATOLOGY Eosinophils 4.9 % 0.0 - 4.0 08/12/2015 [facility] Eosinophils # 0.2 K/CMM 0.0 - 0.5 08/12/2015 [facility] Basophils 1.0 % 0.0 - 1.0 08/12/2015 [facility] Segs-Bands # 2.3 K/CMM 1.5 - 8.1 08/12/2015 [facility] Lymphocytes # 1.9 K/CMM 1.0 - 5.5 08/12/2015 [facility] WBC 4.8 K/CMM 3.7 - 10.4 08/12/2015 [facility] RBC 4.42 M/CMM 4.20 - 5.40 08/12/2015 [facility] MCV 85.4 fL 80.0 - 98.0 08/12/2015 [facility] MCH 28.7 pg 27.0 - 31.0 08/12/2015 [facility] RDW 13.3 % 11.5 - 14.5 08/12/2015 [facility] MPV 7.7 fL 7.4 - 10.4 08/12/2015 [facility] MCHC 33.6 g/dL 32.0 - 36.0 08/12/2015 [facility] Platelet 244 K/CMM 133 - 450 08/12/2015 [facility] Bone Density Scan Bone Density Scan PROCEDURE: Bone Density Scan REASON FOR EXAM: See Clinic Indication CLINICAL INFORMATION screening for osteoporosis COMPARISON: 07/21/2011 FINDINGS: The lumbar spine bone mineral density is 0.809. This is 77% of the expected normal value, T-score is -2.2. This is decreased 6.3% from the prior exam. The left hip bone mineral density is 1.000. This is 104% of the expected normal value, T-score is 0.3. This is decreased 2.9% from the prior exam. The femoral neck bone mineral density is 0.757. IMPRESSION: 1. Osteopenia of the lumbar spine. 2. Normal bone mineral density of the left hip. SL: 16 10/23/2014 - - Read by: Victor Hugo Steve MD Dictated Date/time: 10/23/14 15:07 Electronically Signed by: Victor Hugo Steve MD 10/23/14 15:08 FINAL REPORT [facility] Digital Mammo Screening Alec MA Digital Mammo Screening Alec MA - DIGITAL MAMMO SCREENING ALEC MA BILATERAL DIGITAL SCREENING MAMMOGRAM WITH CAD: 10/23/2014 CLINICAL: Routine. Current study was evaluated with a Computer Aided Detection (CAD) system. Comparison is made to exams dated: 10/01/2012 mammogram, 07/21/2011 mammogram, 04/02/2009 mammogram, 12/20/2007 mammogram - [facility] and 03/10/2005. There are scattered fibroglandular densities in both breasts. There are benign calcifications in the right breast. No significant masses, calcifications, or other findings are seen in either breast. There has been no significant interval change. IMPRESSION: BENIGN There is no mammographic evidence of malignancy. A 1 year screening mammogram is recommended. Bill silver/wade:10/26/2014 07:47:43 Compliance Specialist: Анна Cardenas, [facility] This exam was dictated and interpreted by [id number] for [facility]. letter sent: Normal exam Mammogram BI-RADS: 2 Benign 10/23/2014 - - Read by: Bill Pinzon MD Dictated Date/time: 10/26/14 07:47 Electronically Signed by: Bill Pinzon MD 10/26/14 07:47 FINAL REPORT [facility] Digital Mammo Screening Alec MA Digital Mammo Screening Alec MA - DIGITAL MAMMO SCREENING ALEC MA BILATERAL DIGITAL SCREENING MAMMOGRAM WITH CAD: 10/01/2012 CLINICAL: Other Screening Mammogram. Current study was evaluated with a Computer Aided Detection (CAD) system. Comparison is made to exams dated: 07/21/2011 mammogram, 04/02/2009 mammogram, 12/20/2007 mammogram - [facility] and 03/10/2005. There are scattered fibroglandular elements in both breasts that could obscure a lesion on mammography. There are benign calcifications in the right breast. No significant masses, calcifications, or other findings are seen in either breast. There has been no significant interval change. IMPRESSION: BENIGN There is no mammographic evidence of malignancy. A screening mammogram in one year is recommended. SUMMARY: SL: 13. Bill devriest/penrad:10/02/2012 07:52:27 Compliance Specialist: Desiree Hernandez, [facility] letter sent: Normal exam Mammogram BI-RADS: 2 Benign 10/01/2012 - - Read by: Bill Pinzon Dictated Date/time: 10/02/12 07:52 Electronically Signed by: Bill Pinzon MD 10/02/12 07:52 FINAL REPORT [facility] Vital Signs Vital Sign Value Date Comments Source Heart Rate 88 09/04/2015 [facility] Temperature Oral (F) 97.8 F 09/04/2015 [facility] Systolic (mm Hg) 122 09/04/2015 [facility] Diastolic (mm Hg) 82 09/04/2015 [facility] Respitory Rate 20 09/04/2015 [facility] Respitory Rate 18 09/03/2015 [facility] Temperature Oral (F) 98.1 F 09/03/2015 [facility] Heart Rate 90 09/03/2015 [facility] Respitory Rate 18 09/03/2015 [facility] Systolic (mm Hg) 108 09/03/2015 [facility] Diastolic (mm Hg) 70 09/03/2015 [facility] Heart Rate 81 09/03/2015 [facility] Systolic (mm Hg) 118 09/03/2015 [facility] Diastolic (mm Hg) 82 09/03/2015 [facility] Temperature Oral (F) 98.1 F 09/03/2015 [facility] Weight 84.091 08/31/2015 [facility] BMI Calculated 32.84 08/31/2015 [facility] Height 160.02 cm 08/31/2015 [facility] Weight 84.091 08/31/2015 [facility] BMI Calculated 31.82 08/31/2015 [facility] Height 162.56 cm 08/31/2015 [facility] Respitory Rate 14 08/18/2015 [facility] Systolic (mm Hg) 99 08/18/2015 [facility] Diastolic (mm Hg) 64 08/18/2015 [facility] Respitory Rate 16 08/18/2015 [facility] Heart Rate 85 08/18/2015 [facility] Temperature Oral (F) 98.4 F 08/18/2015 [facility] Temperature Oral (F) 98.5 F 08/18/2015 [facility] Respitory Rate 14 08/18/2015 [facility] Heart Rate 93 08/18/2015 [facility] Systolic (mm Hg) 96 08/18/2015 [facility] Diastolic (mm Hg) 59 08/18/2015 [facility] Temperature Oral (F) 98.0 F 08/18/2015 [facility] Systolic (mm Hg) 103 08/18/2015 [facility] Diastolic (mm Hg) 70 08/18/2015 [facility] Heart Rate 91 08/18/2015 [facility] Weight 85.455 08/12/2015 [facility] BMI Calculated 31.35 08/12/2015 [facility] Height 165.1 cm 08/12/2015 [facility] Encounters Location Location Details Encounter Type Encounter Number Reason For Visit Attending Provider ADM Date DC Date Status Source [facility] Outpatient [id number] SCREENING KRZYSZTOF ROSSEL 10/01/2012 Active [facility] Outpatient [id number] Krzysztof Rossel 10/23/2014 10/24/2014 [facility] OBS Observation Patient [id number] Toni Luz 08/17/2015 08/18/2015 [facility] Inpatient [id number] Nadira Ramirez 08/31/2015 09/04/2015 [facility] Outpatient [id number] Toni Luz 11/05/2015 11/06/2015 [facility] Outpatient [id number] Krzysztof Rossel 01/05/2017 01/06/2017 [facility] Procedures Procedure Code Date Perfomer Comments Source BSO - Total abdominal hysterectomy and bilateral salpingo-oophorectomy [id number] 08/03/2015 [facility] Arthroscopic knee operation [id number] [facility] Hernia repair [id number] [facility]
--- OUTSIDE RECORDS SUMMARY | 2018-05-17 08:21 | XMS REPORT | Summary of Care ---
Author Organization Unknown Address Unknown Phone Unavailable Encounter HQ Encntr_alishimon(SANDEEP) [id number] Date(s): 10/23/14 - 10/23/14 [facility] [address] [place] [address]- Discharge Disposition: Home Physician Attending: Ranjith Sotomayor MD Physician_Referring: Ranjith Sotomayor MD Vital Signs No data available for this section Problem List No data available for this section Allergies, Adverse Reactions, Alerts No data available for this section Medications No data available for this section Results No data available for this section Immunizations No data available for this section Procedures No data available for this section Social History No data available for this section Assessment and Plan No data available for this section
[2018-05-17 09:15] LABS: BILIRUBIN,URINE NEGATIVE (NEGATIVE); CLARITY,URINE CLEAR (CLEAR); COLOR,URINE YELLOW (YELLOW); KETONES,URINE NEGATIVE (NEGATIVE); LEUKOCYTE ESTERASE ,URINE NEGATIVE (NEGATIVE); NITRITE,URINE NEGATIVE (NEGATIVE); PROTEIN,URINE DIPSTICK NEGATIVE (NEGATIVE); URINE UROBILINOGEN 0.2 mg/dL (0.2 - 1)
[2018-05-17 09:16] LABS: BASOPHILS % 0.6 % (0.0-1.0); EOSINOPHILS # (AUTO) 0.2 (0.0-0.4); EOSINOPHILS % 3.9 % (0.0-6.0); HEMATOCRIT 39.7 % (34.2-44.1); HEMOGLOBIN 13.4 g/dL (12.0-16.0); LYMPHOCYTES # (AUTO) 2.1 (1.0-3.2); MEAN CORPUSCULAR HEMOGLOBIN 29.4 pg (28-32); MEAN CORPUSCULAR HGB CONC 33.8 g/dL (31-35); MEAN CORPUSCULAR VOLUME 87.1 fL (81-99); MONOCYTES # (AUTO) 0.3 (0.2-0.8); MONOCYTES % 5.6 % (4.4-11.3); NEUTROPHILS % 43.7 % (38.7-80.0); PLATELET COUNT 262 x10e3/uL (140-360); RED BLOOD COUNT 4.56 x10e6/uL (3.6-5.1); RED CELL DISTRIBUTION WIDTH 12.3 % (11.7-14.4)
[2018-05-17 09:34] LABS: ALANINE AMINOTRANSFERASE 46 IU/L (0-55); ALBUMIN 4.6 g/dL (3.5-5.0); ALBUMIN/GLOBULIN RATIO 1.3 (0.8-2.0); ALKALINE PHOSPHATASE 72 IU/L (40-150); ANION GAP 15.1 mmol/L (8-16); BLOOD UREA NITROGEN 11 mg/dL (7-26); BUN/CREATININE RATIO 14 (6-25); CALCIUM 9.9 mg/dL (8.4-10.2); CARBON DIOXIDE 25 mmol/L (22-29); CHLORIDE 103 mmol/L (98-107); CREATININE, SERUM 0.77 mg/dL (0.57-1.11); EST GLOMERULAR FILTRATION RATE > 60 ML/MIN (60-); GLUCOSE 93 mg/dL (74-118); POTASSIUM 4.1 mmol/L (3.5-5.1); SODIUM 139 mmol/L (136-145)
[2018-05-17 12:25] VITALS: BP 146/93
--- NOTE | 2018-05-17 14:10 | Operative Report ---
DATE OF PROCEDURE: May 17, 2018 PREOPERATIVE DIAGNOSIS: Cholecystitis and cholelithiasis. POSTOPERATIVE DIAGNOSIS: Cholecystitis and cholelithiasis. OPERATION PERFORMED: Laparoscopic cholecystectomy. SPOON MAKER: JACKIE Wiseman. ANESTHESIA: General. COMPLICATIONS: None. ESTIMATED BLOOD LOSS: Minimal. DESCRIPTION OF PROCEDURE: With the patient lying in bed in the supine position under good general endotracheal anesthesia, the abdomen was prepped with Betadine solution and draped in the usual manner. A Veress needle was introduced into the right upper quadrant and pneumoperitoneum was established without any difficulty. A 5-mm trocar was placed in the right subcostal region. An 5 mm video laparoscope was placed into the intra-abdominal cavity. Video laparoscopy at this point revealed the patient had some small bowel adhesions to the anterior abdominal wall, but these were confined to the lower abdomen mostly on the right side from the patient's previous Pfannenstiel incision. The subumbilical area was free of any adhesions. An 11-mm trocar was then placed into the umbilicus and a 10 mm video laparoscope was placed into the intra-abdominal cavity. Under direct vision, 2 more 5-mm trocars were placed in the right subcostal region. Laparoscopy at this point other than the previously described adhesions revealed some mild fatty infiltration of the liver. The gallbladder that was covered up with adhesions and a gallbladder that had several large stones impacted in the neck of the gallbladder. The rest the abdominal exploration was otherwise within normal limits. All of the adhesions to the gallbladder were then slowly and carefully taken down. The peritoneum overlying the neck of the gallbladder was then opened and the cystic duct was identified. The cystic duct was followed to its junction with the common duct. The cystic duct was then circumferentially dissected away from the common duct, doubly clipped and divided. The cystic artery was similarly doubly clipped and divided. The gallbladder was then slowly and carefully taken off the liver bed using the cautery scissors and perfect hemostasis was ascertained. The gallbladder was grasped through the umbilical port and removed without any difficulty. Video laparoscopy was then again carried out. The liver bed was found to perfectly dry. All of the excess fluid was aspirated. The pneumoperitoneum was evacuated and all the trocars were removed under direct vision. The midline fascia at the umbilicus was then closed with a figure-of-8 of 0 Vicryl. All layers were infiltrated on the way out with a solution of 0.25% Marcaine. Subcutaneous tissue was approximated with 3-0 Vicryl and the skin was closed with subcuticular 5-0 Vicryl. Benzoin, Steri-Strips and Band-Aids were applied. The sponge, lap and needle count was correct. The patient tolerated the procedure well and returned to the recovery room in stable condition. Job#: [id number] ROXY
== END | disposition home or self-care (01) ==
LOC: OR 08:17
PROVIDERS: ATTEND Surgery
DX: K80.10 Calculus of gallbladder with chronic cholecystitis without obstruction (principal); K76.0 Fatty (change of) liver, not elsewhere classified; K82.8 Other specified diseases of gallbladder; I10 Essential (primary) hypertension; K21.9 Gastro-esophageal reflux disease without esophagitis
CPT/HCPCS: 36415; 80053; 81003; 85025; 88304; 93005; C1766; J1100; J1885; J2001; J2250; J2270; J2405